=== PATIENT | male | born 1975 | race Two or more races ===

== ENCOUNTER 2021-09-27 07:24 | Outpatient (REF) | payer OTHER, SELFPAY ==
[2021-09-27 07:43] LABS: MANUAL DIFF FLAG NO
[2021-09-27 07:52] LABS: Basophils Absolute Auto 0.1 X10*3/uL (0.0-0.2); Basophils Percent Auto 1.1 % (0-2); Eosinophils Absolute Auto 0.2 X10*3/uL (0.0-0.4); Eosinophils Percent Auto 4.6 % (0-4); Hemoglobin 15.2 g/dl (14.0-18.0); Lymphocytes Absolute Auto 1.9 X10*3/uL (1.2-4.9); Lymphocytes Percent Auto 40.8 % (20-40); Mean Corpuscular Hemoglobin 29.2 pg (27.0-33.0); Mean Corpuscular Volume 88.5 fL (80.0-98.0); Mean Platelet Volume 9.3 fL (9.4-12.4); Monocytes Absolute Auto 0.4 X10*3/uL (0.1-1.2); Monocytes Percent Auto 8.8 % (2-11); Neutrophils Absolute Auto 2.1 x10*3/uL (2.0-8.3); Neutrophils Percent Auto 44.7 % (45-73); Platelet Count 316 X10*3/uL (160-400); Red Cell Distribution Width 12.9 % (11.0-16.0); White Blood Count 4.8 X10*3/uL (4.8-10.8)
[2021-09-27 08:20] LABS: Alanine Aminotransferase 24 U/L (0-40); Albumin Level 4.5 g/dL (3.5-5.0); Alkaline Phosphatase 51 U/L (39-117); Anion Gap 9 (12-20); Aspartate Amino Transferase 18 U/L (5-37); Bilirubin Total 0.4 mg/dL (0.0-1.0); Blood Urea Nitrogen 14 mg/dL (9-16); Calcium 9.7 mg/dL (8.4-10.2); Carbon Dioxide 30 mmol/L (22-29); Chloride 105 mmol/L (96-108); Cholesterol 155 mg/dL; Estimated Glomerular Filt Rate > 60; Glucose Fasting 98 mg/dL (60-99); HDL Cholesterol 46 mg/dL; LDL Cholesterol Calculated 98 mg/dl; Potassium 4.4 mmol/L (3.3-5.1); Sodium 140 mmol/L (135-145); Total Protein 7.3 g/dL (6.5-8.0); Triglycerides 56 mg/dL
[2021-09-27 08:44] LABS: Thyroid Stimulating Hormone 2.28 uIU/mL (0.32-4.0)
== END 2021-09-27 07:25 | disposition home or self-care (01) ==
LOC: HO.LAB 07:24
PROVIDERS: PCP Internal Medicine; Visit Provider Internal Medicine
DX: Z00.00 Encounter for general adult medical examination without abnormal findings (principal); Z13.0 Encounter for screening for diseases of the blood and blood-forming organs and certain disorders involving the immune mechanism; Z13.220 Encounter for screening for lipoid disorders; Z13.29 Encounter for screening for other suspected endocrine disorder
CPT/HCPCS: 36415; 80053; 80061; 84443; 85025

== ENCOUNTER 2022-01-02 07:17 | Outpatient (REF) | payer OTHER, SELFPAY ==
--- NOTE | ~2022-01-02 | XR_ITS ---
EXAMINATION: XR CHEST CLINICAL INFORMATION: Asbestos exposure COMPARISON: None TECHNIQUE: 2 views of the chest were obtained. FINDINGS: The cardiac and mediastinal contours are normal. The lungs are clear. There is no pleural effusion, pleural thickening or calcification. Bony structures are unremarkable. XR/XR chest 2V IMPRESSION: Unremarkable exam.
[2022-01-08 12:21] LABS: Testosterone, Free 86.6 pg/mL (35.0-155.0); Testosterone, Total 495 ng/dL (250-1100)
== END 2022-01-02 07:18 | disposition home or self-care (01) ==
LOC: HO.XRAY 07:17
PROVIDERS: PCP Internal Medicine; Visit Provider Internal Medicine
DX: N52.9 Male erectile dysfunction, unspecified (principal); Z77.090 Contact with and (suspected) exposure to asbestos
CPT/HCPCS: 36415; 71046; 84402; 84403

== ENCOUNTER 2022-05-23 07:56 | Outpatient (REF) | payer OTHER, SELFPAY ==
[2022-05-23 09:46] LABS: Thyroid Stimulating Hormone 3.39 uIU/mL (0.32-4.0)
== END 2022-05-23 07:57 | disposition home or self-care (01) ==
LOC: HO.LAB 07:56
PROVIDERS: PCP Internal Medicine; Visit Provider Internal Medicine
DX: E03.9 Hypothyroidism, unspecified (principal)
CPT/HCPCS: 36415; 84443

== ENCOUNTER 2022-11-21 08:00 | Outpatient (REF) | payer OTHER, SELFPAY ==
[2022-11-21 08:36] LABS: MANUAL DIFF FLAG NO
[2022-11-21 09:03] LABS: Basophils Percent Auto 0.9 % (0-2); Eosinophils Absolute Auto 0.2 X10*3/uL (0.0-0.4); Eosinophils Percent Auto 4.7 % (0-4); Hematocrit 43.7 % (42.0-52.0); Hemoglobin 14.6 g/dl (14.0-18.0); Lymphocytes Absolute Auto 2.2 X10*3/uL (1.2-4.9); Lymphocytes Percent Auto 49.4 % (20-40); Mean Corpuscular HGB Conc 33.4 g/dl (31.0-36.0); Mean Corpuscular Hemoglobin 29.3 pg (27.0-33.0); Mean Corpuscular Volume 87.8 fL (80.0-98.0); Mean Platelet Volume 9.2 fL (9.4-12.4); Monocytes Absolute Auto 0.5 X10*3/uL (0.1-1.2); Neutrophils Absolute Auto 1.6 x10*3/uL (2.0-8.3); Platelet Count 266 X10*3/uL (160-400); Red Blood Count 4.98 X10*6/uL (4.60-5.80); Red Cell Distribution Width 12.8 % (11.0-16.0); White Blood Count 4.5 X10*3/uL (4.8-10.8)
[2022-11-21 09:49] LABS: Alanine Aminotransferase 26 U/L (0-40); Albumin Level 4.3 g/dL (3.5-5.0); Alkaline Phosphatase 50 U/L (39-117); Anion Gap 11 (12-20); Aspartate Amino Transferase 18 U/L (5-37); Bilirubin Total 0.6 mg/dL (0.0-1.0); Blood Urea Nitrogen 14 mg/dL (9-16); Calcium 9.4 mg/dL (8.4-10.2); Carbon Dioxide 28 mmol/L (22-29); Chloride 107 mmol/L (96-108); Cholesterol 149 mg/dL; Estimated Glomerular Filt Rate > 60; Glucose Fasting 87 mg/dL (60-99); HDL Cholesterol 47 mg/dL; LDL Cholesterol Calculated 89 mg/dl; Potassium 4.2 mmol/L (3.3-5.1); Sodium 142 mmol/L (135-145); Triglycerides 68 mg/dL
== END 2022-11-21 08:01 | disposition home or self-care (01) ==
LOC: HO.LAB 08:00
PROVIDERS: PCP Internal Medicine; Visit Provider Internal Medicine
DX: D64.9 Anemia, unspecified (principal); E03.9 Hypothyroidism, unspecified; E78.5 Hyperlipidemia, unspecified; N28.9 Disorder of kidney and ureter, unspecified
CPT/HCPCS: 36415; 80053; 80061; 84443; 85025

== ENCOUNTER 2022-11-27 08:15 | Outpatient (AMB) | payer OTHER, SELFPAY ==
[2022-11-27 08:21] VITALS: BP 114/80; PULSE 64; O2SAT 98; BMI 26.9
--- NOTE | 2022-11-27 08:21 | MHC.PC.OV ---
Vital Signs 11/27/22 08:21 Height 6 ft 2 in Weight 209 lb 6 oz BMI 26.9 BP 114/80 Blood Pressure Location Lt brachial Position Sitting Pulse 64 Pulse Source Pulse Oximeter Pulse Oximetry (%) 98 Oxygen Delivery Method Room Air Intake Visit Reasons: 3mth f/u Allergies No Known Allergies Allergy (Verified 11/27/22 08:26) Medication List - Last Reconciled 11/27/22 by Raymond Jim MD blood pressure monitor (Blood Pressure Kit) As directed levothyroxine (Euthyrox) 50 mcg PO DAILY lisinopril 10 mg PO DAILY sildenafil (Viagra) 50 mg PO DAILY PRN Tobacco use date assessed: 10/18/22 Dental Screening Dental Screen Date: 11/27/22 Did you have a dental visit in the last 12 months?: No Did you have a dental problem in the last 6 months where you did not have access to dental care?: No Was dental information given to patient?: Patient declined HPI 3mth f/u HPI Details HTN and hypothyroidism; stable on rx PFSH Surgical History No pertinent past surgical history Family History Other Mental health disorder Substance use disorder Social History Housing: Apartment Alcohol intake: current Alcohol intake frequency: a few times a week Patient Tobacco Use Status: Never used Tobacco e-Cigarette/Vaping Use: Never Used Second Hand Smoke Exposure: No service: No Current occupational status: employed Cognitive needs: No Hearing needs: No Vision needs: No Questionnaire PHQ-9 Over the last 2 weeks, how often have you been bothered by any of the following problems? 1. Little interest or pleasure in doing things: not at all 2. Feeling down, depressed, or hopeless: not at all 3. Trouble falling or staying asleep, or sleeping too much: not at all 4. Feeling tired or having little energy: not at all 5. Poor appetite or overeating: not at all 6. Feeling bad about yourself - or that you are a failure or have let yourself or your family down: not at all 7. Trouble concentrating on things, such as reading the newspaper or watching television: not at all 8. Moving or speaking so slowly that other people could have noticed. Or the opposite - being so fidgety or restless that you have been moving around a lot more than usual: not at all 9. Thoughts that you would be better off or of hurting yourself in some way: not at all Total score: 0 Depression Screening Interpretation: Negative Source: Developed by Drs. Tucker Dos Santos, Betty Hill, Zbigniew Barreto and colleagues, with an educational kimberly from [employer]. Thrive Questionnaire Date Thrive assessed: 05/24/22 I am a: Patient What is your living situation today?: I have a steady place to live Within the past 12 months, did the food you bought not last and you didn't have the money to get more?: Never true Within the past 12 months, did you worry whether your food would run out before you got money to buy more?: Never true Do you have trouble paying for medicines?: No Do you have trouble getting transportation to medical appointments?: No Do you have trouble paying your heating and electricity bill?: No Do you have trouble taking care of your child, family member or friend?: No Do you have trouble with day-to-day activities such as bathing, preparing meals, shopping, managing finances, etc.?: No Are you currently unemployed and looking for a job?: No Are you interested in more education?: No Currently or been in a relationship where the following occur: no concerns reported AUDIT C Alcohol Use Questionnaire (AUDIT-C) 1. How often do you have a drink containing alcohol?: 2-3 times a week 2. How many drinks containing alcohol do you have on a typical day when you are drinking?: 5 or 6 3. How often do you have six or more drinks on one occasion?: Less than monthly Total Score: 6 Score Reviewed/Action Taken: Yes TAWANDA-7 AMB Questionnaire TAWANDA-7 Date TAWANDA - 7 assessed: 05/24/22 Feeling nervous, anxious, or on edge: 0 = Not at all Not being able to stop or control worryin = Not at all Worrying too much about different things: 0 = Not at all Trouble relaxin = Not at all Being so restless that it is hard to sit still: 0 = Not at all Becoming easily annoyed or irritable: 0 = Not at all Feeling afraid as if something awful might happen: 0 = Not at all Total TAWANDA-7 score (0-4 normal; 5-9 mild; 10-14 moderate; 15-21 severe): 0 Source: Developed by Drs. Tucker Dos Santos, Betty Hill, Zbigniew Barreto and colleagues, with an educational kimberly from [employer]. TAWANDA-7 Assessment Billing TAWANDA-7 Assessment Tool: TAWANDA-7 Assessment 08886 Review of Systems Const Denies chills, Denies headache(s) and Denies weight loss ENT Denies headache(s) Card Denies chest pain, Denies syncope, Denies irregular heart rhythm and Denies dyspnea Resp Denies chest congestion, Denies cough and Denies dyspnea GI Denies abdominal pain, Denies change in stool character, Denies nausea and Denies vomiting Musc Denies deformity and Denies joint swelling Neuro Denies syncope and Denies headache(s) Physical exam (Primary Care) Vital Signs: Last Vital Signs Pulse 64 11/27/22 08:21 BP 114/80 11/27/22 08:21 Pulse Ox 98 11/27/22 08:21 Oxygen Delivery Method Room Air 11/27/22 08:21 BMI result Body Mass Index 26.9 Tobacco/Smoking Status: Tobacco use Status Tobacco use date assessed 10/18/22 11/27/22 08:28 Patient Tobacco Use Status Never used Tobacco 11/27/22 08:28 e-Cigarette/Vaping Use Never Used 11/27/22 08:28 PHQ-9: PHQ-9 Score PHQ-9: Total score 0 11/27/22 08:28 Depression Screening Interpretation: Negative Thrive Assessment: Date of Thrive Assessment Date Thrive assessed 05/24/22 11/27/22 08:28 Currently or been in a relationship where the following occur: no concerns reported Const General: cooperative, comfortable and no acute distress Neck Thyroid: Thyroid normal Carotids: normal carotid upstroke Resp Effort & Inspection: normal respiratory effort Cardio Jugular venous distension: no JVD Rate: regular rate Rhythm: regular rhythm GI Inspection: Yes normal to inspection Assessment and Plan Assessment & Plan (1) Hypothyroidism: Code(s): E03.9 - Hypothyroidism, unspecified Plan: stable; same rx (2) Hypertension: Code(s): I10 - Essential (primary) hypertension Plan: stable; same rx Orders: Orders Thyroid Stimulating Hormone Today E03.9 - Hypothyroidism, unspecified Coding Level of Care Code Est Pt Level 3 (30182) Diagnoses Hypothyroidism E03.9 Hypertension I10 Additional Codes TAWANDA-7 Assessment Billing - TAWANDA-7 Assessment Tool: TAWANDA-7 Assessment [id number] ([id number])
== END 2022-11-27 08:52 | disposition home or self-care (01) ==
PROVIDERS: PCP Internal Medicine; Visit Provider Internal Medicine
DX: E03.9 Hypothyroidism, unspecified (principal); I10 Essential (primary) hypertension
CPT/HCPCS: 99213

== ENCOUNTER 2023-03-10 08:34 | Outpatient (AMB) | payer OTHER, SELFPAY ==
[2023-03-10 08:38] VITALS: BP 132/88; PULSE 75; O2SAT 99; BMI 27.2
--- NOTE | 2023-03-10 08:38 | A.OFFPC_ITS ---
Vital Signs 03/10/23 08:38 Height 6 ft 2 in Weight 212 lb BMI 27.2 BP 132/88 Blood Pressure Location Lt brachial Position Sitting Pulse 75 Pulse Source Pulse Oximeter Pulse Oximetry (%) 99 Oxygen Delivery Method Room Air Intake Visit Reasons: 3 month f/u Reject Opener And Filler: Not Required per policy Accompanied by: Self / Same As Patient Allergies No Known Allergies Allergy (Verified 03/10/23 08:39) Medication List - Last Reconciled 03/10/23 by Raymond Jim MD blood pressure monitor (Blood Pressure Kit) As directed levothyroxine (Euthyrox) 50 mcg PO DAILY lisinopril 10 mg PO DAILY sildenafil (Viagra) 50 mg PO DAILY PRN Tobacco use date assessed: 10/18/22 Dental Screening Dental Screen Date: 03/10/23 Did you have a dental visit in the last 12 months?: No Did you have a dental problem in the last 6 months where you did not have access to dental care?: No Was dental information given to patient?: Patient has dentist HPI 3 month f/u HPI Details hypothyroidism on rx; doing well PFSH Surgical History No pertinent past surgical history Family History Other Mental health disorder Substance use disorder Housing: Apartment Alcohol intake: current Alcohol intake frequency: a few times a week Patient Tobacco Use Status: Never used Tobacco e-Cigarette/Vaping Use: Never Used Second Hand Smoke Exposure: No service: No Current occupational status: employed Cognitive needs: No Hearing needs: No Vision needs: No Questionnaire Thrive Questionnaire Date Thrive assessed: 05/24/22 TAWANDA-7 AMB Questionnaire TAWANDA-7 Date TAWANDA - 7 assessed: 05/24/22 Source: Developed by Drs. Tucker Dos Santos, Betty Hill, Zbigniew Barreto and colleagues, with an educational kimberly from [employer]. Review of Systems Const Denies chills, Denies headache(s) and Denies weight loss ENT Denies headache(s) Card Denies chest pain, Denies syncope, Denies irregular heart rhythm and Denies dyspnea Resp Denies chest congestion, Denies cough and Denies dyspnea GI Denies abdominal pain, Denies change in stool character, Denies nausea and Denies vomiting Musc Denies deformity and Denies joint swelling Neuro Denies syncope and Denies headache(s) Physical exam (Primary Care) Vital Signs: Last Vital Signs Pulse 75 03/10/23 08:38 BP 132/88 03/10/23 08:38 Pulse Ox 99 03/10/23 08:38 Oxygen Delivery Method Room Air 03/10/23 08:38 BMI result Body Mass Index 27.2 Tobacco/Smoking Status: Tobacco use Status Tobacco use date assessed 10/18/22 03/10/23 08:40 Patient Tobacco Use Status Never used Tobacco 03/10/23 08:40 e-Cigarette/Vaping Use Never Used 03/10/23 08:40 Thrive Assessment: Date of Thrive Assessment Date Thrive assessed 05/24/22 03/10/23 08:40 Const General: cooperative, comfortable, no acute distress and alert Neck Neck: Yes no lymphadenopathy Thyroid: Thyroid normal Resp Effort & Inspection: normal respiratory effort Auscultation: clear to auscultation bilaterally Percussion: percussion normal Cardio Jugular venous distension: no JVD Palpation: normal PMI Rate: regular rate Rhythm: regular rhythm Heart sounds: S1 normal heart sound present and S2 normal heart sound present GI Inspection: Yes normal to inspection Palpation (GI): No hepatosplenomegaly present Skin General skin exam: no rashes or lesions noted Extrem General: Yes no clubbing, cyanosis or edema Assessment and Plan Assessment & Plan (1) Hypothyroidism: Code(s): E03.9 - Hypothyroidism, unspecified Plan: stable; same rx Orders: Orders Thyroid Stimulating Hormone Today E03.9 - Hypothyroidism, unspecified ECG 12 lead EKG Today R06.00 - Dyspnea, unspecified Medications: New tadalafil (Cialis) administer approximately 30min before sexual activity; do not use more than 1 dose per 24hrs 20 mg PO DAILY PRN 30 tabs 3RF sexual activity Discontinued sildenafil (Viagra) administer 30 minutes to 4 hours before activity Discontinued Reason: None 50 mg PO DAILY PRN 20 tabs 2RF sexual activity Coding Level of Care Code Est Pt Level 3 (59638) Diagnoses Hypothyroidism E03.9
== END 2023-03-10 09:22 | disposition home or self-care (01) ==
PROVIDERS: PCP Internal Medicine; Visit Provider Internal Medicine
DX: E03.9 Hypothyroidism, unspecified (principal)
CPT/HCPCS: 99213

== ENCOUNTER 2023-03-10 09:26 | Outpatient (REF) | payer OTHER, SELFPAY ==
--- NOTE | 2023-03-10 09:34 | ECG_ITS ---
Test Reason : r06.00 Blood Pressure : / mmHG Vent. Rate : 071 BPM Atrial Rate : 071 BPM P-R Int : 168 ms QRS Dur : 076 ms QT Int : 374 ms P-R-T Axes : 056 086 043 degrees QTc Int : 406 ms Normal sinus rhythm Normal ECG No previous ECGs available Referred By: Raymond Jim Electronically Signed By:CANDACE PEÑA MD
[2023-03-10 09:39] LABS: MANUAL DIFF FLAG NO
[2023-03-10 10:29] LABS: Eosinophils Absolute Auto 0.2 X10*3/uL (0.0-0.4); Hematocrit 46.5 % (42.0-52.0); Hemoglobin 15.2 g/dl (14.0-18.0); Imm Gran Abs Auto 0.01 X10*3/uL (0.00-0.03); Imm Gran Pct Auto 0.2 % (0.0-0.4); Lymphocytes Absolute Auto 1.6 X10*3/uL (1.2-4.9); Lymphocytes Percent Auto 39.1 % (20-40); Mean Corpuscular HGB Conc 32.7 g/dl (31.0-36.0); Mean Corpuscular Hemoglobin 29.7 pg (27.0-33.0); Mean Corpuscular Volume 90.8 fL (80.0-98.0); Mean Platelet Volume 9.5 fL (9.4-12.4); Monocytes Absolute Auto 0.4 X10*3/uL (0.1-1.2); Monocytes Percent Auto 9.6 % (2-11); Neutrophils Absolute Auto 1.9 x10*3/uL (2.0-8.3); Neutrophils Percent Auto 45.1 % (45-73); Platelet Count 313 X10*3/uL (160-400); Red Blood Count 5.12 X10*6/uL (4.60-5.80); White Blood Count 4.2 X10*3/uL (4.8-10.8)
[2023-03-10 11:15] LABS: Alanine Aminotransferase 49 U/L (0-40); Albumin Level 4.6 g/dL (3.5-5.0); Alkaline Phosphatase 46 U/L (39-117); Anion Gap 10 (12-20); Aspartate Amino Transferase 29 U/L (5-37); Bilirubin Total 0.4 mg/dL (0.0-1.0); Blood Urea Nitrogen 12 mg/dL (9-16); Calcium 9.7 mg/dL (8.4-10.2); Carbon Dioxide 29 mmol/L (22-29); Chloride 106 mmol/L (96-108); Cholesterol 179 mg/dL (<200); Estimated Glomerular Filt Rate > 60; Glucose Fasting 88 mg/dL (60-99); HDL Cholesterol 55 mg/dL (>40); LDL Cholesterol Calculated 108 mg/dL (<100); Potassium 4.2 mmol/L (3.3-5.1); Sodium 141 mmol/L (135-145); Total Protein 7.7 g/dL (6.5-8.0); Triglycerides 83 mg/dL (<150)
[2023-03-10 11:36] LABS: Thyroid Stimulating Hormone 1.54 uIU/mL (0.32-4.0)
== END 2023-03-10 09:27 | disposition home or self-care (01) ==
LOC: HO.LAB 09:26
PROVIDERS: PCP Internal Medicine; Visit Provider Internal Medicine
DX: N28.9 Disorder of kidney and ureter, unspecified (principal); D64.9 Anemia, unspecified; E78.5 Hyperlipidemia, unspecified; E03.9 Hypothyroidism, unspecified; R06.00 Dyspnea, unspecified
CPT/HCPCS: 36415; 80053; 80061; 84443; 85025; 93005

== ENCOUNTER 2023-06-09 08:51 | Outpatient (AMB) | payer OTHER, SELFPAY ==
[2023-06-09 08:52] VITALS: BP 146/80; PULSE 95; O2SAT 99; BMI 27.3
--- NOTE | 2023-06-09 08:52 | A.OFFPC_ITS ---
Vital Signs 06/09/23 08:52 Height 6 ft 2 in Weight 213 lb BMI 27.3 BP 146/80 H Blood Pressure Location Lt brachial Position Sitting Pulse 95 Pulse Source Pulse Oximeter Pulse Oximetry (%) 99 Oxygen Delivery Method Room Air Intake Visit Reasons: follow up Severity Of Illness Coordinator: Present Allergies No Known Allergies Allergy (Verified 06/09/23 08:52) Medication List - Last Reconciled 06/09/23 by Raymond Jim MD blood pressure monitor (Blood Pressure Kit) As directed levothyroxine (Euthyrox) 50 mcg PO DAILY lisinopril 10 mg PO DAILY tadalafil (Cialis) 20 mg PO DAILY PRN Tobacco use date assessed: 06/09/23 Dental Screening Dental Screen Date: 06/09/23 Did you have a dental visit in the last 12 months?: Yes Did you have a dental problem in the last 6 months where you did not have access to dental care?: No Was dental information given to patient?: Patient has dentist HPI follow up HPI Details HTN hypothyroidism and ED on rx; compliant and doing well [facility] Surgical History No pertinent past surgical history Family History Other Mental health disorder Substance use disorder Social History Housing: Apartment Alcohol intake: current Alcohol intake frequency: a few times a week Patient Tobacco Use Status: Never used Tobacco e-Cigarette/Vaping Use: Never Used Second Hand Smoke Exposure: No service: No Current occupational status: employed Cognitive needs: No Hearing needs: No Vision needs: No Questionnaire PHQ-9 Over the last 2 weeks, how often have you been bothered by any of the following problems? 1. Little interest or pleasure in doing things: not at all 2. Feeling down, depressed, or hopeless: not at all 3. Trouble falling or staying asleep, or sleeping too much: not at all 4. Feeling tired or having little energy: not at all 5. Poor appetite or overeating: not at all 6. Feeling bad about yourself - or that you are a failure or have let yourself or your family down: not at all 7. Trouble concentrating on things, such as reading the newspaper or watching television: not at all 8. Moving or speaking so slowly that other people could have noticed. Or the opposite - being so fidgety or restless that you have been moving around a lot more than usual: not at all 9. Thoughts that you would be better off or of hurting yourself in some way: not at all Total score: 0 Depression Screening Interpretation: Negative Depression Screening Done: Yes 93710 - PHQ-9 Billing: Yes Source: Developed by Drs. Tucker Dos Santos, Betty Hill, Zbigniew Barreto and colleagues, with an educational kimberly from [employer]. Thrive Questionnaire Date Thrive assessed: 06/09/23 I am a: Patient What is your living situation today?: I have a steady place to live Within the past 12 months, did the food you bought not last and you didn't have the money to get more?: Never true Within the past 12 months, did you worry whether your food would run out before you got money to buy more?: Never true Do you have trouble paying for medicines?: No Do you have trouble getting transportation to medical appointments?: No Do you have trouble paying your heating and electricity bill?: No Do you have trouble taking care of your child, family member or friend?: No Do you have trouble with day-to-day activities such as bathing, preparing meals, shopping, managing finances, etc.?: No Are you currently unemployed and looking for a job?: No Are you interested in more education?: No Please select the resources that you would like help with: None THRIVE Score: 0 AUDIT C Alcohol Use Questionnaire (AUDIT-C) 1. How often do you have a drink containing alcohol?: 2-3 times a week 2. How many drinks containing alcohol do you have on a typical day when you are drinking?: 5 or 6 3. How often do you have six or more drinks on one occasion?: Less than monthly Total Score: 6 Score Reviewed/Action Taken: Yes TAWANDA-7 AMB Questionnaire TAWANDA-7 Date TAWANDA - 7 assessed: 06/09/23 Feeling nervous, anxious, or on edge: 0 = Not at all Not being able to stop or control worryin = Not at all Worrying too much about different things: 0 = Not at all Trouble relaxin = Not at all Being so restless that it is hard to sit still: 0 = Not at all Becoming easily annoyed or irritable: 0 = Not at all Feeling afraid as if something awful might happen: 0 = Not at all Total TAWANDA-7 score (0-4 normal; 5-9 mild; 10-14 moderate; 15-21 severe): 0 Source: Developed by Drs. Tucker Dos Santos, Betty Hill, Zbigniew Barreto and colleagues, with an educational kimberly from [employer]. TAWANDA-7 Assessment Billing TAWANDA-7 Assessment Tool: TAWANDA-7 Assessment 17920 Review of Systems Const Denies chills, Denies headache(s) and Denies weight loss ENT Denies headache(s) Card Denies chest pain, Denies syncope, Denies irregular heart rhythm and Denies dyspnea Resp Denies chest congestion, Denies cough and Denies dyspnea GI Denies abdominal pain, Denies change in stool character, Denies nausea and Denies vomiting Musc Denies deformity and Denies joint swelling Neuro Denies syncope and Denies headache(s) Physical exam (Primary Care) Vital Signs: Last Vital Signs Pulse 95 06/09/23 08:52 BP 146/80 H 06/09/23 08:52 Pulse Ox 99 06/09/23 08:52 Oxygen Delivery Method Room Air 06/09/23 08:52 BMI result Body Mass Index 27.3 Tobacco/Smoking Status: Tobacco use Status Tobacco use date assessed 06/09/23 06/09/23 08:57 Patient Tobacco Use Status Never used Tobacco 06/09/23 08:57 e-Cigarette/Vaping Use Never Used 06/09/23 08:57 PHQ-9: PHQ-9 Score PHQ-9: Total score 0 06/09/23 09:06 Depression Screening Interpretation: Negative Thrive Assessment: Date of Thrive Assessment Date Thrive assessed 06/09/23 06/09/23 08:57 Const General: cooperative, comfortable, no acute distress and alert Neck Neck: Yes no lymphadenopathy Thyroid: Thyroid normal Resp Effort & Inspection: normal respiratory effort Auscultation: clear to auscultation bilaterally Percussion: percussion normal Cardio Jugular venous distension: no JVD Palpation: normal PMI Rate: regular rate Rhythm: regular rhythm Heart sounds: S1 normal heart sound present and S2 normal heart sound present GI Inspection: Yes normal to inspection Palpation (GI): No hepatosplenomegaly present Skin General skin exam: no rashes or lesions noted Extrem General: Yes no clubbing, cyanosis or edema Assessment and Plan Assessment & Plan (1) Hypothyroidism: Code(s): E03.9 - Hypothyroidism, unspecified Plan: stable; same rx (2) Hypertension: Code(s): I10 - Essential (primary) hypertension Plan: stable; same rx (3) Varicose veins of bilateral lower extremities with pain: Code(s): I83.813 - Varicose veins of bilateral lower extremities with pain Plan: requests referral to the vein center Orders: Orders PFT pulmonary function test Today Lipid Panel Today E78.5 - Hyperlipidemia, unspecified Complete Blood Count Auto Diff Today D64.9 - Anemia, unspecified Comprehensive [place]. Panel Fast Today N28.9 - Disorder of kidney and ureter, unspecified Thyroid Stimulating Hormone Today E03.9 - Hypothyroidism, unspecified Vitamin D 25-OH Total Today Z13.9 - Encounter for screening, unspecified Referrals Vascular Surgery Referral I83.813 - Varicose veins of bilateral lower extremities with pain Coding Level of Care Code Est Pt Level 4 (17006) Diagnoses Hypothyroidism E03.9 Hypertension I10 Varicose veins of bilateral lower extremities with pain I83.813 Additional Codes TAWANDA-7 Assessment Billing - TAWANDA-7 Assessment Tool: TAWANDA-7 Assessment [id number] ([id number])
== END 2023-06-09 09:08 | disposition home or self-care (01) ==
PROVIDERS: PCP Internal Medicine; Visit Provider Internal Medicine
DX: E03.9 Hypothyroidism, unspecified (principal); I10 Essential (primary) hypertension; I83.813 Varicose veins of bilateral lower extremities with pain
CPT/HCPCS: 99214

== ENCOUNTER 2023-10-07 07:32 | Outpatient (REF) | payer OTHER, SELFPAY ==
[2023-10-07 07:49] LABS: MANUAL DIFF FLAG NO
[2023-10-07 08:06] LABS: Basophils Percent Auto 0.8 % (0-2); Eosinophils Absolute Auto 0.3 X10*3/uL (0.0-0.4); Eosinophils Percent Auto 6.8 % (0-4); Hematocrit 42.9 % (42.0-52.0); Hemoglobin 14.8 g/dl (14.0-18.0); Imm Gran Abs Auto 0.01 X10*3/uL (0.00-0.03); Imm Gran Pct Auto 0.2 % (0.0-0.4); Lymphocytes Absolute Auto 2.2 X10*3/uL (1.2-4.9); Lymphocytes Percent Auto 44.3 % (20-40); Mean Corpuscular HGB Conc 34.5 g/dl (31.0-36.0); Mean Corpuscular Hemoglobin 30.3 pg (27.0-33.0); Mean Corpuscular Volume 87.7 fL (80.0-98.0); Mean Platelet Volume 9.5 fL (9.4-12.4); Monocytes Absolute Auto 0.5 X10*3/uL (0.1-1.2); Neutrophils Absolute Auto 1.9 x10*3/uL (2.0-8.3); Neutrophils Percent Auto 37.9 % (45-73); Platelet Count 284 X10*3/uL (160-400); Red Blood Count 4.89 X10*6/uL (4.60-5.80)
[2023-10-07 08:41] LABS: Alanine Aminotransferase 27 U/L (0-40); Alkaline Phosphatase 50 U/L (39-117); Anion Gap 12 (12-20); Aspartate Amino Transferase 20 U/L (5-37); Bilirubin Total 0.5 mg/dL (0.0-1.0); Blood Urea Nitrogen 12 mg/dL (9-16); Calcium 9.1 mg/dL (8.4-10.2); Carbon Dioxide 25 mmol/L (22-29); Chloride 107 mmol/L (96-108); Cholesterol 155 mg/dL (<200); Estimated Glomerular Filt Rate > 60; Glucose Fasting 89 mg/dL (60-99); HDL Cholesterol 51 mg/dL (>40); LDL Cholesterol Calculated 85 mg/dL (<100); Potassium 4.1 mmol/L (3.3-5.1); Sodium 140 mmol/L (135-145); Total Protein 6.8 g/dL (6.5-8.0); Triglycerides 96 mg/dL (<150)
[2023-10-07 08:58] LABS: Thyroid Stimulating Hormone 2.33 uIU/mL (0.32-4.0); Vitamin D 25-OH Total 28.4 ng/mL (>30)
== END 2023-10-07 07:33 | disposition home or self-care (01) ==
LOC: HO.LAB 07:32
PROVIDERS: PCP Internal Medicine; Visit Provider Internal Medicine
DX: D64.9 Anemia, unspecified (principal); N28.9 Disorder of kidney and ureter, unspecified; Z13.9 Encounter for screening, unspecified; E03.9 Hypothyroidism, unspecified; E78.5 Hyperlipidemia, unspecified
CPT/HCPCS: 36415; 80053; 80061; 82306; 84443; 85025

== ENCOUNTER 2023-10-08 08:31 | Outpatient (AMB) | payer OTHER, SELFPAY ==
--- NOTE | 2023-10-08 08:35 | MHC.PC.OV ---
Vital Signs 10/08/23 08:42 Height 6 ft 2 in Weight 213 lb 0.6 oz BMI 27.3 BP 136/74 Blood Pressure Location Lt brachial Position Sitting Pulse 75 Pulse Source Pulse Oximeter Pulse Oximetry (%) 100 Oxygen Delivery Method Room Air Intake Visit Reasons: 4mth f/u Intake Note: Patient is here to follow up on HTN. Consumer Loan Specialist Required: No Allergies No Known Allergies Allergy (Verified 10/08/23 08:42) Tobacco use date assessed: 06/09/23 Dental Screening Dental Screen Date: 06/09/23 HPI 4mth f/u HPI Details HTN and hypothyr on rx; doing well; labs fine PFSH Surgical History No pertinent past surgical history Family History Other Mental health disorder Substance use disorder Social History Housing: Apartment Alcohol intake: current Alcohol intake frequency: a few times a week Patient Tobacco Use Status: Never used Tobacco e-Cigarette/Vaping Use: Never Used Second Hand Smoke Exposure: No service: No Current occupational status: employed Cognitive needs: No Hearing needs: No Vision needs: No Questionnaire Thrive Questionnaire Date Thrive assessed: 06/09/23 AUDIT C Alcohol Use Questionnaire (AUDIT-C) 1. How often do you have a drink containing alcohol?: 2-3 times a week 2. How many drinks containing alcohol do you have on a typical day when you are drinking?: 5 or 6 3. How often do you have six or more drinks on one occasion?: Less than monthly Total Score: 6 Score Reviewed/Action Taken: Yes TAWANDA-7 AMB Questionnaire TAWANDA-7 Date TAWANDA - 7 assessed: 06/09/23 Source: Developed by Drs. Tucker Dos Santos, Betty Hill, Zbigniew Barreto and colleagues, with an educational kimberly from [employer]. Review of Systems Const Denies chills, Denies headache(s) and Denies weight loss ENT Denies headache(s) Card Denies chest pain, Denies syncope, Denies irregular heart rhythm and Denies dyspnea Resp Denies chest congestion, Denies cough and Denies dyspnea GI Denies abdominal pain, Denies change in stool character, Denies nausea and Denies vomiting Musc Denies deformity and Denies joint swelling Neuro Denies syncope and Denies headache(s) Physical exam (Primary Care) Vital Signs: Last Vital Signs Pulse 75 10/08/23 08:42 BP 136/74 10/08/23 08:42 Pulse Ox 100 10/08/23 08:42 Oxygen Delivery Method Room Air 10/08/23 08:42 BMI result Body Mass Index 27.3 Tobacco/Smoking Status: Tobacco use Status Tobacco use date assessed 06/09/23 10/08/23 08:44 Patient Tobacco Use Status Never used Tobacco 10/08/23 08:44 e-Cigarette/Vaping Use Never Used 10/08/23 08:44 Thrive Assessment: Date of Thrive Assessment Date Thrive assessed 06/09/23 10/08/23 08:44 Const General: cooperative, comfortable, no acute distress and alert Neck Neck: Yes no lymphadenopathy Thyroid: Thyroid normal Resp Effort & Inspection: normal respiratory effort Auscultation: clear to auscultation bilaterally Percussion: percussion normal Cardio Jugular venous distension: no JVD Palpation: normal PMI Rate: regular rate Rhythm: regular rhythm Heart sounds: S1 normal heart sound present and S2 normal heart sound present GI Inspection: Yes normal to inspection Palpation (GI): No hepatosplenomegaly present Skin General skin exam: no rashes or lesions noted Extrem General: Yes no clubbing, cyanosis or edema Assessment and Plan Assessment & Plan (1) Hypothyroidism: Code(s): E03.9 - Hypothyroidism, unspecified Plan: stable; same rx (2) Hypertension: Code(s): I10 - Essential (primary) hypertension Plan: stable; same rx Medications: Refilled tadalafil (Cialis) administer approximately 30min before sexual activity; do not use more than 1 dose per 24hrs 20 mg PO DAILY PRN 30 tabs 3RF sexual activity Coding Level of Care Code Est Pt Level 3 (48015) Diagnoses Hypothyroidism E03.9 Hypertension I10
[2023-10-08 08:42] VITALS: BP 136/74; PULSE 75; O2SAT 100; BMI 27.3
== END 2023-10-08 08:52 | disposition home or self-care (01) ==
PROVIDERS: PCP Internal Medicine; Visit Provider Internal Medicine
DX: E03.9 Hypothyroidism, unspecified (principal); I10 Essential (primary) hypertension
CPT/HCPCS: 99213

== ENCOUNTER 2024-01-06 08:04 | Outpatient (REF) | payer OTHER, SELFPAY ==
[2024-01-06 10:12] LABS: Thyroid Stimulating Hormone 2.85 uIU/mL (0.32-4.0)
== END 2024-01-06 08:05 | disposition home or self-care (01) ==
LOC: HO.LAB 08:04
PROVIDERS: PCP Internal Medicine; Visit Provider Internal Medicine
DX: E03.9 Hypothyroidism, unspecified (principal)
CPT/HCPCS: 36415; 84443

== ENCOUNTER 2024-01-08 09:47 | Outpatient (AMB) | payer OTHER, SELFPAY ==
[2024-01-08 09:48] VITALS: BP 132/78; PULSE 74; O2SAT 96; BMI 27.6
--- NOTE | 2024-01-08 09:48 | A.OFFPC_ITS ---
Vital Signs 01/08/24 09:48 Height 6 ft 2 in Weight 215 lb BMI 27.6 BP 132/78 Blood Pressure Location Lt brachial Position Sitting Pulse 74 Pulse Source Pulse Oximeter Pulse Oximetry (%) 96 Oxygen Delivery Method Room Air Intake Visit Reasons: 3 Month F/U Allergies No Known Allergies Allergy (Verified 10/08/23 08:42) Medication List - Last Reconciled 01/08/24 by Raymond Jim MD blood pressure monitor (Blood Pressure Kit) As directed levothyroxine (Euthyrox) 50 mcg PO DAILY lisinopril 10 mg PO DAILY tadalafil (Cialis) 20 mg PO DAILY PRN Tobacco use date assessed: 06/09/23 Dental Screening Dental Screen Date: 06/09/23 HPI 3 Month F/U HPI Details hypertension on rx; doing well; compliant [facility] Surgical History No pertinent past surgical history Family History Other Mental health disorder Substance use disorder Social History Housing: Apartment Alcohol intake: current Alcohol intake frequency: a few times a week Patient Tobacco Use Status: Never used Tobacco Tobacco use type: Cigarette e-Cigarette/Vaping Use: Never Used Second Hand Smoke Exposure: No service: No Current occupational status: employed Cognitive needs: No Hearing needs: No Vision needs: No Questionnaire PHQ-9 Over the last 2 weeks, how often have you been bothered by any of the following problems? 1. Little interest or pleasure in doing things: not at all 2. Feeling down, depressed, or hopeless: not at all 3. Trouble falling or staying asleep, or sleeping too much: not at all 4. Feeling tired or having little energy: not at all 5. Poor appetite or overeating: not at all 6. Feeling bad about yourself - or that you are a failure or have let yourself or your family down: not at all 7. Trouble concentrating on things, such as reading the newspaper or watching television: not at all 8. Moving or speaking so slowly that other people could have noticed. Or the opposite - being so fidgety or restless that you have been moving around a lot more than usual: not at all 9. Thoughts that you would be better off or of hurting yourself in some way: not at all Total score: 0 Depression Screening Interpretation: Negative Depression Screening Done: Yes 69181 - PHQ-9 Billing: Yes Source: Developed by Drs. Tucker Dos Santos, Betty Hill, bZigniew Barreto and colleagues, with an educational kimberly from [employer]. Thrive Questionnaire Date Thrive assessed: 06/09/23 Are you currently unemployed and looking for a job?: No AUDIT C Alcohol Use Questionnaire (AUDIT-C) 1. How often do you have a drink containing alcohol?: 2-3 times a week 2. How many drinks containing alcohol do you have on a typical day when you are drinking?: 5 or 6 3. How often do you have six or more drinks on one occasion?: Less than monthly Total Score: 6 Score Reviewed/Action Taken: Yes TAWANDA-7 AMB Questionnaire TAWANDA-7 Date TAWANDA - 7 assessed: 06/09/23 Source: Developed by Drs. Tucker Dos Santos, Betty Hill, Zbigniew Barreto and colleagues, with an educational kimberly from [employer]. Review of Systems Const Denies chills, Denies headache(s) and Denies weight loss ENT Denies headache(s) Card Denies chest pain, Denies syncope, Denies irregular heart rhythm and Denies dyspnea Resp Denies chest congestion, Denies cough and Denies dyspnea GI Denies abdominal pain, Denies change in stool character, Denies nausea and Denies vomiting Musc Denies deformity and Denies joint swelling Neuro Denies syncope and Denies headache(s) Physical exam (Primary Care) Vital Signs: Last Vital Signs Pulse 74 01/08/24 09:48 BP 132/78 01/08/24 09:48 Pulse Ox 96 01/08/24 09:48 Oxygen Delivery Method Room Air 01/08/24 09:48 BMI result Body Mass Index 27.6 Tobacco/Smoking Status: Tobacco use Status Tobacco use date assessed 06/09/23 01/08/24 09:52 Patient Tobacco Use Status Never used Tobacco 01/08/24 09:52 Tobacco use type Cigarette 01/08/24 09:52 e-Cigarette/Vaping Use Never Used 01/08/24 09:52 PHQ-9: PHQ-9 Score PHQ-9: Total score 0 01/08/24 09:53 Depression Screening Interpretation: Negative Thrive Assessment: Date of Thrive Assessment Date Thrive assessed 06/09/23 01/08/24 09:52 Const General: cooperative, comfortable, no acute distress and alert Neck Neck: Yes no lymphadenopathy Thyroid: Thyroid normal Resp Effort & Inspection: normal respiratory effort Auscultation: clear to auscultation bilaterally Percussion: percussion normal Cardio Jugular venous distension: no JVD Palpation: normal PMI Rate: regular rate Rhythm: regular rhythm Heart sounds: S1 normal heart sound present and S2 normal heart sound present GI Inspection: Yes normal to inspection Palpation (GI): No hepatosplenomegaly present Skin General skin exam: no rashes or lesions noted Extrem General: Yes no clubbing, cyanosis or edema Assessment and Plan Assessment & Plan (1) Hypertension: Code(s): I10 - Essential (primary) hypertension Plan: stable; same rx Orders: Orders Thyroid Stimulating Hormone Today Z13.29 - Encounter for screening for other suspected endocrine disorder Coding Level of Care Code Est Pt Level 3 (96457) Diagnoses Hypertension I10
== END 2024-01-08 10:04 | disposition home or self-care (01) ==
PROVIDERS: PCP Internal Medicine; Visit Provider Internal Medicine
DX: I10 Essential (primary) hypertension (principal)

== ENCOUNTER → 2024-01-08 09:47 | Outpatient (BNVA) | payer OTHER, SELFPAY | PROVIDERS: PCP Internal Medicine; Visit Provider Internal Medicine | DX: I10 Essential (primary) hypertension (principal) | CPT/HCPCS: 96127 ==

== ENCOUNTER 2024-02-27 08:47 | Outpatient (REF) | payer OTHER, SELFPAY ==
--- NOTE | 2024-02-27 08:56 | PFT_ITS ---
Flows: FEV1: 67 % of predicted at 3.04 L FVC: 76 % of predicted at 4.40 L FEV1/FVC: 69 % Bronchodilator response: Absent Volumes: Patient was not able to perform lung volumes maneuvers. Diffusion capacity: Normal Impression: Moderate obstructive ventilatory defect. Suggestion of restrictive ventilatory defect. No bronchodilator response. Patient was not able to perform lung volumes maneuvers. MTDD
[2024-02-27 14:20] VITALS: PULSE 72; O2SAT 98
== END 2024-02-27 08:48 | disposition home or self-care (01) ==
LOC: HO.RESP 08:47
PROVIDERS: PCP Internal Medicine; Visit Provider Internal Medicine
DX: I10 Essential (primary) hypertension (principal); E03.9 Hypothyroidism, unspecified
CPT/HCPCS: 94010; 94640; 94727; 94729

== ENCOUNTER → 2024-02-27 08:56 | Outpatient (BNV) | payer OTHER, SELFPAY | PROVIDERS: PCP Internal Medicine; Visit Provider Internal Medicine Pulmonary Disease | DX: R06.2 Wheezing (principal) | CPT/HCPCS: 94060; 94729 ==

== ENCOUNTER 2024-03-24 11:47 | Outpatient (AMB) | payer OTHER, SELFPAY ==
[2024-03-24 11:50] VITALS: BP 118/72; PULSE 74; O2SAT 98; BMI 27.7
--- NOTE | 2024-03-24 11:50 | MHC.PC.OV ---
Vital Signs 03/24/24 11:50 Height 6 ft 2 in Weight 216 lb BMI 27.7 BP 118/72 Blood Pressure Location Lt brachial Position Sitting Pulse 74 Pulse Source Pulse Oximeter Pulse Oximetry (%) 98 Oxygen Delivery Method Room Air Intake Visit Reasons: Breathing test follow up Allergies No Known Allergies Allergy (Verified 03/24/24 11:50) Medication List - Last Reconciled 03/25/24 by Raymond Jim MD blood pressure monitor (Blood Pressure Kit) As directed levothyroxine (Euthyrox) 50 mcg PO DAILY lisinopril 10 mg PO DAILY tadalafil (Cialis) 20 mg PO DAILY PRN Tobacco use date assessed: 06/09/23 Dental Screening Dental Screen Date: 06/09/23 HPI Breathing test follow up HPI Details dyspnea; could not perform full PFTs PFSH Surgical History No pertinent past surgical history Family History Other Mental health disorder Substance use disorder Social History Housing: Apartment Alcohol intake: current Alcohol intake frequency: a few times a week Patient Tobacco Use Status: Never used Tobacco Tobacco use type: Cigarette e-Cigarette/Vaping Use: Never Used Second Hand Smoke Exposure: No service: No Current occupational status: employed Cognitive needs: No Hearing needs: No Vision needs: No Questionnaire PHQ-9 Over the last 2 weeks, how often have you been bothered by any of the following problems? 1. Little interest or pleasure in doing things: not at all 2. Feeling down, depressed, or hopeless: not at all 3. Trouble falling or staying asleep, or sleeping too much: not at all 4. Feeling tired or having little energy: not at all 5. Poor appetite or overeating: not at all 6. Feeling bad about yourself - or that you are a failure or have let yourself or your family down: not at all 7. Trouble concentrating on things, such as reading the newspaper or watching television: not at all 8. Moving or speaking so slowly that other people could have noticed. Or the opposite - being so fidgety or restless that you have been moving around a lot more than usual: not at all 9. Thoughts that you would be better off or of hurting yourself in some way: not at all Total score: 0 Depression Screening Interpretation: Negative Depression Screening Done: Yes 59029 - PHQ-9 Billing: Yes Source: Developed by Drs. Tucker Dos Santos, Betty Hill, Zbigniew Barreto and colleagues, with an educational kimberly from [employer]. Thrive Questionnaire Date Thrive assessed: 06/09/23 Are you currently unemployed and looking for a job?: No AUDIT C Alcohol Use Questionnaire (AUDIT-C) 1. How often do you have a drink containing alcohol?: 2-3 times a week 2. How many drinks containing alcohol do you have on a typical day when you are drinking?: 5 or 6 3. How often do you have six or more drinks on one occasion?: Less than monthly Total Score: 6 Score Reviewed/Action Taken: Yes TAWANDA-7 AMB Questionnaire TAWANDA-7 Date TAWANDA - 7 assessed: 06/09/23 Source: Developed by Drs. Tucker Dos Santos, Betty Hill, Zbigniew Barreto and colleagues, with an educational kimberly from [employer]. Review of Systems Const Denies chills, Denies headache(s) and Denies weight loss ENT Denies headache(s) Card Denies chest pain, Denies syncope and Denies irregular heart rhythm Resp Denies chest congestion and Denies cough GI Denies abdominal pain, Denies change in stool character, Denies nausea and Denies vomiting Musc Denies deformity and Denies joint swelling Neuro Denies syncope and Denies headache(s) Physical exam (Primary Care) Vital Signs: Last Vital Signs Pulse 74 03/24/24 11:50 BP 118/72 03/24/24 11:50 Pulse Ox 98 03/24/24 11:50 Oxygen Delivery Method Room Air 03/24/24 11:50 BMI result Body Mass Index 27.7 Tobacco/Smoking Status: Tobacco use Status Tobacco use date assessed 06/09/23 03/24/24 11:54 Patient Tobacco Use Status Never used Tobacco 03/24/24 11:54 Tobacco use type Cigarette 03/24/24 11:54 e-Cigarette/Vaping Use Never Used 03/24/24 11:54 PHQ-9: PHQ-9 Score PHQ-9: Total score 0 03/24/24 11:54 Depression Screening Interpretation: Negative Thrive Assessment: Date of Thrive Assessment Date Thrive assessed 06/09/23 03/24/24 11:54 Const General: cooperative, comfortable, no acute distress and alert Neck Neck: Yes no lymphadenopathy Thyroid: Thyroid normal Resp Effort & Inspection: normal respiratory effort Auscultation: clear to auscultation bilaterally Percussion: percussion normal Cardio Jugular venous distension: no JVD Palpation: normal PMI Rate: regular rate Rhythm: regular rhythm Heart sounds: S1 normal heart sound present and S2 normal heart sound present GI Inspection: Yes normal to inspection Palpation (GI): No hepatosplenomegaly present Skin General skin exam: no rashes or lesions noted Extrem General: Yes no clubbing, cyanosis or edema Coding Level of Care Code Est Pt Level 3 (79377) Diagnoses Dyspnea R06.00 Additional Codes PHQ-9 - 87174 - PHQ-9 Billing: Yes ([id number]) Assessment & Plan Assessment & Plan (1) Dyspnea: Code(s): R06.00 - Dyspnea, unspecified Plan: ref to pulmonary Orders: Referrals Pulmonology Referral R06.00 - Dyspnea, unspecified
--- OUTSIDE RECORDS SUMMARY | 2024-03-25 01:53 | XMS_ITS ---
Author Organization [facility] Address [address] [place] [address] Care Team Providers Care Dag Coater Name Role Phone Raymond Jim MD Primary Care Provider Unavaila Tucker Ferris Unavailable [phone] REASON FOR VISIT CALL ME BACK Encounters Encounter Location Date Provider Diagnosis [facility] [address] [place] [address] 03/13/2023 Tucker Hunt PLAN OF TREATMENT No Information
--- OUTSIDE RECORDS SUMMARY | 2024-03-25 01:53 | XMS_ITS | Patient Health Record ---
Author Organization [facility] Address [address] [place] [address] Care Team Providers Care Sales And Service Associate Name Role Phone Raymond Jim MD Primary Care Provider Tucker Parekh Unavailable [phone] REASON FOR REFERRAL No Information SOCIAL HISTORY Sex Assigned At : Social History Observation Description Sex Assigned At Unknown PLAN OF TREATMENT No Information Insurance Providers Payer Name Payer Address Payer Phone Subscriber Number Group Number Insured Name Patient Relationship to Insured Coverage Start Date Coverage End Date [facility] [address] [place] [phone] [id number] MAY JAMES Self - patient is the insured
--- OUTSIDE RECORDS SUMMARY | 2024-03-25 01:53 | XMS_ITS | Continuity of Care Document ---
Author Organization [facility] Address [address] [place] [address] [address] [place] [phone] Phone Care Team Providers Care Outside Sales Advertising Executive Name Role Phone Nikolai ORTEGA, [place], Tucker [...] Providers Copied on Encounter [facility], [address] [place] [address] [address], [id number], [place] tel:[phone] [facility] No Information 4 Nikolai ORTEGA, KATELYN COLEMAN. [address] [facility] [address], [place], [place], [id number], [place]. tel:[phone] Referring Provider: Raymond Jim MD, [address] [facility] [address], [place], [address]. tel:[phone] Offic/outpt E&m Estab 5 Min Trial- Telemedicine [place] & [place] [facility], [address] [place] [address] [address]G[place], [id number], [place] tel:[phone] [facility]R - [facility] Cramp and spasmRestless legs syndromeVenou s insufficiency (chronic) (peripheral)P ruritus, unspecifiedEs sential (primary) hypertension 4 Xuan Sutton. [address] [facility], [address], [place], [id number], [place]. tel:[phone] Referring Provider: Raymond Jim MD, [address] [facility], [place], [address]. tel:[phone] Offic Cons New/estab Mod 40 Ak [facility], [address] [place] [address] [address] 1000[place], [id number], [place] tel:[phone] [facility] [place] Varicose veins of bilateral lower extremities with other complications Pain in right lower legPain in left lower legPain in right legRestless legs syndromeEssen tial (primary) hypertensionP ruritus, unspecifiedPa in in left legCramp and spasm 4 Nikolai ORTEGA RVT, KATELYN Ceballos. [address] [facility] [address], [place], [id number], [place]. tel:[phone] Referring Provider: Raymond Jim MD, [address] [facility], [place], [address]. tel:[phone] [place] [facility], [address] [place] [address] [address]nie [address], [place], [id number], [place] tel:[phone] [facility] Chronic venous hypertension (idiopathic) with other complications of bilateral lower extremity 4 Nikolai ORTEGA RVT, KATELYN Ceballos. [address] [facility], [address], [place], [id number], [place]. tel:[phone] Referring Provider: Raymond Jim MD, [address] [facility] [address] [facility], [place], [address]. tel:[phone] Family History Family Member Type Diagnosis Age At Onset No Information Payers Payer name Insurance type Covered democrat ID Authoriza tion(s) No Information Social History [...]
== END 2024-03-24 12:50 | disposition home or self-care (01) ==
PROVIDERS: PCP Internal Medicine; Visit Provider Internal Medicine
DX: R06.00 Dyspnea, unspecified (principal)

== ENCOUNTER → 2024-03-24 11:47 | Outpatient (BNVA) | payer OTHER, SELFPAY | PROVIDERS: PCP Internal Medicine; Visit Provider Internal Medicine | DX: R06.00 Dyspnea, unspecified (principal) | CPT/HCPCS: 96127 ==

== ENCOUNTER 2024-03-30 09:18 | Outpatient (AMB) | payer OTHER, SELFPAY ==
--- NOTE | 2024-03-30 09:20 | A.OFFVIS_ITS ---
Vital Signs 03/30/24 09:22 Height 6 ft 2 in Weight 218 lb 4 oz BMI 28.0 BP 116/78 Blood Pressure Location Rt brachial Position Sitting Pulse 64 Pulse Source Pulse Oximeter Pulse Oximetry (%) 97 Oxygen Delivery Method Room Air Intake Visit Reasons: Dyspnea Allergies No Known Allergies Allergy (Verified 03/30/24 09:25) HPI HPI Dyspnea: Details: Ar is a pleasant 48 year old male, never smoker, with underlying HTN. He was referred by PCP for pulmonary evaluation for worsening respiratory symptosm over the last year. He reports dyspnea on exertion, dry cough and intermittent wheezing. He also notes post nasal drip with associated itchy throat. He ensodrses seasonal allergies, no recent allergy testing. Denies any epts at home. He does report likely occupational exposures working in [employer] and now a [employer] x 10 years. He is unsure of any pertinent family history. He denies h/o asthma however did have second hand smoke exposure as a child. He did have recent PFT which revealed mild obstructive defect with no response to bronchodilator. DLCO normal however unable to perform lung volumes. Prior CXR 2021 unremarkable. [facility] Surgical History No pertinent past surgical history Family History Other Mental health disorder Substance use disorder Social History Housing: Apartment Alcohol intake: current Alcohol intake frequency: a few times a week Patient Tobacco Use Status: Never used Tobacco Tobacco use type: Cigarette e-Cigarette/Vaping Use: Never Used Second Hand Smoke Exposure: No service: No Current occupational status: employed Cognitive needs: No Hearing needs: No Vision needs: No Review of Systems Const Denies chills, Denies excessive sweating, Denies fever(s), Denies headache(s) and Denies night sweats Eyes Denies dry eyes, Denies irritation and Denies itchy eyes ENT Reports Normal hearing present, Denies headache(s), Denies nasal congestion, Denies nasal discharge and Denies sore throat Card Denies chest pain, Denies chest pain at rest, Denies chest pain with activity, Denies claudication, Denies leg edema, Denies orthopnea and Denies paroxysmal nocturnal dyspnea Resp Denies chest congestion, Denies excessive phlegm production, Denies pain on inspiration, Denies pain with cough and Denies stridor Musc Denies myalgias Neuro Reports Normal hearing present and Denies headache(s) Endo Denies excessive sweating Will/Lymph Denies lymphadenopathy Aller/Immun Denies itchy eyes and Denies seasonal rhinorrhea Physical Exam Vital Signs: Last Vital Signs Pulse 64 03/30/24 09:22 BP 116/78 03/30/24 09:22 Pulse Ox 97 03/30/24 09:22 Oxygen Delivery Method Room Air 03/30/24 09:22 BMI result Body Mass Index 28.0 Const General: cooperative, healthy appearing, comfortable, no acute distress, well developed and alert Orientation/consciousness: patient oriented x3 Limitations: no limitations HEENT Head: Yes normal to inspection, Yes normocephalic and Yes atraumatic Ears: hearing grossly normal bilaterally and external ears normal Eyes General: appearance normal, both eyes and all related structures Eyelids: Yes eyelids normal Sclerae: sclerae normal EOM: EOMs intact bilaterally Neck Neck: Yes normal visual inspection and Yes no lymphadenopathy Lymphatic: no lymphadenopathy noted Chest Chest palpation & inspection: normal inspection of the chest Resp Effort & Inspection: normal respiratory effort, able to speak in complete sentences, no audible wheezes, no cough, no stridor, not tachypneic, no tripod positioning and no use of accessory muscles Auscultation: clear to auscultation bilaterally Cardio Jugular venous distension: no JVD Rate: regular rate Rhythm: regular rhythm Skin Other: warm, dry General skin exam: no rashes or lesions noted Neuro General: patient oriented x3 Cranial nerves: Yes Normal hearing present Cognition (Neuro): normal cognition Gait exam (Neuro): Normal gait present Extrem General: Yes normal to inspection, Yes capillary refill normal, Yes no clubbing, cyanosis or edema and Yes no pedal edema Psych Appearance: grossly normal and well kempt Speech and movement: Normal speech and movement present and Clear speech present Affect: normal affect Attitude: cooperative Thought process: Normal thought process present Thought content: Normal thought content present Insight: Good insight present (Psych) Judgement: Good judgement present (Psych) Assessment & Plan Assessment & Plan (1) Asthma: Code(s): J45.909 - Unspecified asthma, uncomplicated Category: Medical (2) Chronic cough: Code(s): R05.3 - Chronic cough Category: Medical (3) Environmental allergies: Code(s): Z91.09 - Other allergy status, other than to drugs and biological substances Category: Medical Plan Ar's recent PFT revealed mild obstructive defect with elevated DLCO, suggestive of asthma however could not complete lung volumes. Will empirically treat with Breo and recommended wearing a mask while working. Discussed importance of good oral hygiene to prevent thrush. Given persistent respiratory symptoms will also send for CXR and send for RAST to rule out allergic contribution. All questions were answered and patient is in agreement of plan. Will follow up in 6-8 weeks or sooner if needed. Orders: Orders XR chest 2V Today R05.3 - Chronic cough Complete Blood Count Auto Diff Today Z91.09 - Other allergy status, other than to drugs and biological substances Resp Allergy Profile Region I Today Z91.09 - Other allergy status, other than to drugs and biological substances Immunoglobulin E Today Z91.09 - Other allergy status, other than to drugs and biological substances Medications: New fluticasone furoate-vilanterol 100-25 mcg/dose (Breo Ellipta) 1 inh inhalation DAILY 60 ea 6RF Coding Level of Care Code New Pt Level 4 (38159) Diagnoses Asthma J45.909 Chronic cough R05.3 Environmental allergies Z91.09
[2024-03-30 09:22] VITALS: BP 116/78; PULSE 64; O2SAT 97; BMI 28.0
--- OUTSIDE RECORDS SUMMARY | 2024-03-30 09:24 | XMS_ITS | Continuity of Care Document ---
Author Organization [facility] Address [address] [place] [address] [address] [place] [address] Phone Care Team Providers Care Tassel Clipper Name Role Phone Nikolai ORTEGA, [place], Tucker [...] Providers Copied on Encounter [facility], [address] [place] [address] [address], [id number], [place] tel:[phone] [facility] - [facility] No Information 4 Nikolai ORTEGA, KATELYN COLEMAN. [address] [facility] [address], [place], [place], [id number], [place]. tel:[phone] Referring Provider: Raymond Jim MD, [address] [facility] [address], [place], [address]. tel:[phone] Offic/outpt E&m Estab 5 Min Trial- Telemedicine [place] & [place] [facility], [address] [place] [address] [address], [id number], [place] tel:[phone] [facility] - [facility] Cramp and spasmRestless legs syndromeVenou s insufficiency (chronic) (peripheral)P ruritus, unspecifiedEs sential (primary) hypertension 4 Xuan Sutton. [address] [facility], [address], [place], [id number], [place]. tel:[phone] Referring Provider: Raymond Jim MD, [address] [facility], [place], [address]. tel:[phone] Offic Cons New/estab Mod 40 Ma [facility], [address] [place] [address] [address], [id number], [place] tel:[phone] [facility] - [place] [facility] [place] Varicose veins of bilateral lower extremities with other complications Pain in right lower legPain in left lower legPain in right legRestless legs syndromeEssen tial (primary) hypertensionP ruritus, unspecifiedPa in in left legCramp and spasm 4 Nikolai ORTEGA RVT, KATELYN Ceballos. [address] [facility] [address], [place], [id number], [place]. tel:[phone] Referring Provider: Raymond Jim MD, [address] [facility], [place], [address]. tel:[phone] [facility], [address] [place] [address] [address], [place], [id number], [place] tel:[phone] [facility] - [place] [facility] [place] Chronic venous hypertension (idiopathic) with other complications of bilateral lower extremity 4 Nikolai ORTEGA RVT, KATELYN Ceballos. [address] [facility], [address], [place], [id number], [place]. tel:[phone] Referring Provider: Raymond Jim MD, [address] [facility] [address] [facility], [place], [address]. tel:[phone] Family History Family Member Type Diagnosis Age At Onset No Information Payers Payer name Insurance type Covered libertarian ID Authoriza tion(s) No Information Social History [...]
--- OUTSIDE RECORDS SUMMARY | 2024-03-30 09:24 | XMS_ITS | Patient Health Record ---
Author Organization [facility] Address [address] [place] [address] Care Team Providers Care Loan Consultant Name Role Phone Raymond Jim MD Primary Care Provider Tucker Parekh Unavailable [phone] REASON FOR REFERRAL No Information SOCIAL HISTORY Sex Assigned At : Social History Observation Description Sex Assigned At Unknown PLAN OF TREATMENT No Information Insurance Providers Payer Name Payer Address Payer Phone Subscriber Number Group Number Insured Name Patient Relationship to Insured Coverage Start Date Coverage End Date [facility] [address] [facility] [place] [id number] [phone] [id number] MAY JAMES Self - patient is the insured
--- OUTSIDE RECORDS SUMMARY | 2024-03-30 09:24 | XMS_ITS ---
Author Organization [facility] Address [address] [place] [address] Care Team Providers Care Digitizer Name Role Phone Raymnod Jim MD Primary Care Provider Unavaila Tucker Ferris Unavailable [phone] REASON FOR VISIT CALL ME BACK Encounters Encounter Location Date Provider Diagnosis [facility] [address] [place] [id number] 03/13/2023 Tucker Hunt PLAN OF TREATMENT No Information
== END 2024-03-30 09:44 | disposition home or self-care (01) ==
PROVIDERS: PCP Internal Medicine; Referring Provider Internal Medicine; Visit Provider Nurse Practitioner Family
DX: J45.909 Unspecified asthma, uncomplicated (principal); R05.3 Chronic cough; Z91.09 Other allergy status, other than to drugs and biological substances
CPT/HCPCS: 99204

== ENCOUNTER → 2024-03-30 09:18 | Outpatient (BNVA) | payer OTHER, SELFPAY | PROVIDERS: PCP Internal Medicine; Referring Provider Internal Medicine; Visit Provider Nurse Practitioner Family ==

== ENCOUNTER 2024-03-30 10:01 | Outpatient (REF) | payer OTHER, SELFPAY ==
--- OUTSIDE RECORDS SUMMARY | 2024-03-30 10:04 | XMS_ITS | Continuity of Care Document ---
Author Organization [facility] Address [address] [place] [address] Dr [address] [place] [address] Phone Care Team Providers Care Associate Software Engineer Name Role Phone Nikolai ORTEGA, [place], Tucker [...] Providers Copied on Encounter [facility], [address] [place] [address] [address], [id number], [place] tel:[phone] [facility] No Information 4 Nikolai ORTEGA, KATELYN COLEMAN. [address] [facility] [address], [place], [place], [id number], [place]. tel:[phone] Referring Provider: Raymond Jim MD, [address] [facility] [address], [place], [address]. tel:[phone] Offic/outpt E&m Estab 5 Min Trial- Telemedicine [place] & [place] [facility], [address] [place] [address] [address], [id number], [place] tel:[phone] [facility] - [facility] Cramp and spasmRestless legs syndromeVenou s insufficiency (chronic) (peripheral)P ruritus, unspecifiedEs sential (primary) hypertension 4 Xuan Sutton. [address] [facility], [address], [place], [id number], [place]. tel:[phone] Referring Provider: Raymond Jim MD, [address] [facility], [place], [address]. tel:[phone] Offic Cons New/estab Mod 40 Mo [facility], [address] [place] [address] [address], [id number], [place] tel:[phone] [facility] - [place] [facility] [place] Varicose veins of bilateral lower extremities with other complications Pain in right lower legPain in left lower legPain in right legRestless legs syndromeEssen tial (primary) hypertensionP ruritus, unspecifiedPa in in left legCramp and spasm 4 Nikolai ORTEGA RVT, KATELYN Ceballos. [address] [facility] [address], [place], [id number], [place]. tel:[phone] Referring Provider: Raymond Jim MD, [address] [facility], [place], [address]. tel:[phone] [place] [facility], [address] [place] [address] [address], [place], [id number], [place] tel:[phone] [facility] - [place] [facility] [place] Chronic venous hypertension (idiopathic) with other complications of bilateral lower extremity 4 Nikolai ORTEGA RVT, KATELYN Ceballos. [address] [facility], [address], [place], [id number], [place]. tel:[phone] Referring Provider: Raymond Jim MD, [address] [facility] [address] SU[address] [facility], [place], [address]. tel:[phone] Family History Family Member Type Diagnosis Age [...]
[2024-03-30 11:09] LABS: MANUAL DIFF FLAG NO
[2024-03-30 11:13] LABS: Basophils Absolute Auto 0.1 X10*3/uL (0.0-0.2); Basophils Percent Auto 1.3 % (0-2); Eosinophils Absolute Auto 0.3 X10*3/uL (0.0-0.4); Hematocrit 42.6 % (42.0-52.0); Hemoglobin 14.2 g/dl (14.0-18.0); Imm Gran Abs Auto 0.01 X10*3/uL (0.00-0.03); Imm Gran Pct Auto 0.3 % (0.0-0.4); Lymphocytes Absolute Auto 1.6 X10*3/uL (1.2-4.9); Lymphocytes Percent Auto 42.6 % (20-40); Mean Corpuscular HGB Conc 33.3 g/dl (31.0-36.0); Mean Corpuscular Hemoglobin 29.6 pg (27.0-33.0); Mean Corpuscular Volume 88.8 fL (80.0-98.0); Mean Platelet Volume 9.3 fL (9.4-12.4); Monocytes Absolute Auto 0.4 X10*3/uL (0.1-1.2); Monocytes Percent Auto 9.9 % (2-11); Neutrophils Absolute Auto 1.5 x10*3/uL (2.0-8.3); Neutrophils Percent Auto 38.9 % (45-73); Platelet Count 305 X10*3/uL (160-400); Red Cell Distribution Width 12.9 % (11.0-16.0); White Blood Count 3.8 X10*3/uL (4.8-10.8)
[2024-03-31 20:29] LABS: Immunoglobulin E 31 kU/L (<OR=114)
[2024-04-01 13:39] LABS: Class Alternaria alternata 0; Class Aspergillus fumigatus 0; Class Bermuda Grass 0/1; Class Birch 2; Class Cat Dander 0; Class Cladosporium herbarum 0; Class Cockroach 0/1; Class Common Ragweed 0/1; Class Cottonwood 0/1; Class Derm. pterony 0/1; Class Dermatophagoides farinae 0; Class Dog Dander 0; Class Elm 0/1; Class Maple Box Elder 0/1; Class Mountain Cedar 0/1; Class Mouse Urine Protein 0/1; Class Mugwort 0/1; Class Oak 1; Class Penicillium crysogenum 0; Class Rough Pigweed 0/1; Class Sheep Sorrel 0/1; Class Sycamore 0/1; Class Timothy Grass 0/1; Class Walnut Tree 1; Class White Ash 1; Class White Mulberry 0; D001 IgE D pteronyssinus 0.12 kU/L; D002 - IgE D farinae <0.10 kU/L; E001 - IgE Cat Dander <0.10 kU/L; E005 - IgE Dog Dander <0.10 kU/L; E072-IgE Mouse Urine 0.22 kU/L; G002 IgE Bermuda Grass 0.28 kU/L; G006 - IgE Timothy Grass 0.23 kU/L; I006-IgE Cockroach, German 0.25 kU/L; Immunoglobulin E 32 kU/L (<OR=114); M001 IgE Penicillium chrysogen <0.10 kU/L; M002 - IgE Cladosporium herbar <0.10 kU/L; M003 - IgE Aspergillus fumigat <0.10 kU/L; M006 - IgE Alternaria alternat <0.10 kU/L; T001 IgE Maple/Box Elder 0.27 kU/L; T003 IgE Common Silver Birch 0.89 kU/L; T006 - IgE Cedar, Mountain 0.16 kU/L; T008 IgE Elm, American 0.25 kU/L; T010 - IgE Walnut 0.38 kU/L; T011 - IgE Maple Leaf Sycamore 0.18 kU/L; T014 - IgE Cottonwood 0.23 kU/L; T015 - IgE Ash, White 0.39 kU/L; T070 - IgE White Mulberry <0.10 kU/L; W001 - IgE Ragweed, Short 0.33 kU/L; W006 - IgE Mugwort 0.23 kU/L; W014 IgE Pigweed, Common 0.16 kU/L; W018 IgE Sheep Sorrel 0.29 kU/L
== END 2024-03-30 10:02 | disposition home or self-care (01) ==
LOC: HO.WFDLDS 10:01
PROVIDERS: Visit Provider Nurse Practitioner Family
DX: Z91.09 Other allergy status, other than to drugs and biological substances (principal)
CPT/HCPCS: 36415; 82785; 85025; 86003

== ENCOUNTER 2024-04-12 08:42 | Outpatient (AMB) | payer OTHER, SELFPAY ==
--- NOTE | 2024-04-12 08:45 | A.OFFPC_ITS ---
Vital Signs 04/12/24 08:46 Height 6 ft 2 in Weight 216 lb 2 oz BMI 27.7 BP 130/88 Blood Pressure Location Lt brachial Position Sitting Pulse 70 Pulse Source Pulse Oximeter Pulse Oximetry (%) 98 Oxygen Delivery Method Room Air Intake Visit Reasons: 3mth f/u Intake Note: Patient is here to follow up on Asthma, HTN. Retail Planner Required: No Utility Worker Production: Present Accompanied by: Spouse Allergies No Known Allergies Allergy (Verified 04/12/24 08:46) Tobacco use date assessed: 04/12/24 Dental Screening Dental Screen Date: 06/09/23 HPI 3mth f/u HPI Details HTN on Rx; doing well; compliant [facility] Surgical History No pertinent past surgical history Family History Other Mental health disorder Substance use disorder Social History Housing: Apartment Alcohol intake: current Alcohol intake frequency: a few times a week Patient Tobacco Use Status: Never used Tobacco Tobacco use type: Cigarette e-Cigarette/Vaping Use: Never Used Second Hand Smoke Exposure: No service: No Current occupational status: employed Cognitive needs: No Hearing needs: No Vision needs: No Questionnaire Thrive Questionnaire Date Thrive assessed: 06/09/23 Are you currently unemployed and looking for a job?: No TAWANDA-7 AMB Questionnaire TAWANDA-7 Date TAWANDA - 7 assessed: 06/09/23 Source: Developed by Drs. Tucker Dos Santos, Betty Hill, Zbigniew Barreto and colleagues, with an educational kimberly from [employer]. Review of Systems Const Denies chills, Denies headache(s) and Denies weight loss ENT Denies headache(s) Card Denies chest pain, Denies syncope, Denies irregular heart rhythm and Denies dyspnea Resp Denies chest congestion, Denies cough and Denies dyspnea GI Denies abdominal pain, Denies change in stool character, Denies nausea and Denies vomiting Musc Denies deformity and Denies joint swelling Neuro Denies syncope and Denies headache(s) Physical exam (Primary Care) Vital Signs: Last Vital Signs Pulse 70 04/12/24 08:46 BP 130/88 04/12/24 08:46 Pulse Ox 98 04/12/24 08:46 Oxygen Delivery Method Room Air 04/12/24 08:46 BMI result Body Mass Index 27.7 Tobacco/Smoking Status: Tobacco use Status Tobacco use date assessed 04/12/24 04/12/24 08:50 Patient Tobacco Use Status Never used Tobacco 04/12/24 08:50 Tobacco use type Cigarette 04/12/24 08:50 e-Cigarette/Vaping Use Never Used 04/12/24 08:50 Thrive Assessment: Date of Thrive Assessment Date Thrive assessed 06/09/23 04/12/24 08:50 Const General: cooperative, comfortable, no acute distress and alert Neck Neck: Yes no lymphadenopathy Thyroid: Thyroid normal Resp Effort & Inspection: normal respiratory effort Auscultation: clear to auscultation bilaterally Percussion: percussion normal Cardio Jugular venous distension: no JVD Palpation: normal PMI Rate: regular rate Rhythm: regular rhythm Heart sounds: S1 normal heart sound present and S2 normal heart sound present GI Inspection: Yes normal to inspection Palpation (GI): No hepatosplenomegaly present Skin General skin exam: no rashes or lesions noted Extrem General: Yes no clubbing, cyanosis or edema Coding Level of Care Code Est Pt Level 3 (72315) Diagnoses Hypertension I10 Assessment & Plan Assessment & Plan (1) Hypertension: Code(s): I10 - Essential (primary) hypertension Category: Medical Plan: stable on Rx
--- OUTSIDE RECORDS SUMMARY | 2024-04-12 08:45 | XMS_ITS ---
Author Organization [facility] Address [address] [place] [address] Care Team Providers Care Wire Charger Name Role Phone Raymond Jim MD Primary Care Provider Unavaila Tucker Ferris Unavailable [phone] REASON FOR VISIT CALL ME BACK Encounters Encounter Location Date Provider Diagnosis [facility] [address] [place] [id number] 03/13/2023 Tucker Hunt PLAN OF TREATMENT No Information
[2024-04-12 08:46] VITALS: BP 130/88; PULSE 70; O2SAT 98; BMI 27.7
--- OUTSIDE RECORDS SUMMARY | 2024-04-12 08:46 | XMS_ITS | Patient Health Record ---
Author Organization [facility] Address [address] [place] [address] Care Team Providers Care Adjunct Physics Instructor Name Role Phone Raymond Jim MD Primary Care Provider Tucker Parekh Unavailable [phone] REASON FOR REFERRAL No Information SOCIAL HISTORY Sex Assigned At : Social History Observation Description Sex Assigned At Unknown PLAN OF TREATMENT No Information Insurance Providers Payer Name Payer Address Payer Phone Subscriber Number Group Number Insured Name Patient Relationship to Insured Coverage Start Date Coverage End Date [facility] [address] [place] [address] [phone] [id number] MAY JAMES Self - patient is the insured
== END 2024-04-12 08:57 | disposition home or self-care (01) ==
PROVIDERS: PCP Internal Medicine; Visit Provider Internal Medicine
DX: I10 Essential (primary) hypertension (principal)

== ENCOUNTER 2024-06-03 09:21 | Outpatient (REF) | payer OTHER, SELFPAY ==
--- NOTE | ~2024-06-03 | XR_ITS ---
EXAMINATION: XR CHEST CLINICAL INFORMATION: R05.3 - Chronic cough COMPARISON: 01/02/2022. TECHNIQUE: 2 views of the chest were obtained. FINDINGS: The cardiac, hilar, and mediastinal contours are normal. The lungs are well inspired, and clear bilaterally. There is no pneumothorax or pleural effusion. There is no focal osseous or soft tissue abnormality. XR/XR chest 2V IMPRESSION: Normal chest. Electronically signed by: Herman Roberts MD 06/03/2024 09:47 AM [facility]
--- OUTSIDE RECORDS SUMMARY | 2024-06-03 10:07 | XMS_ITS ---
Author Organization [facility] Address [address] [place] [address] Care Team Providers Care Society Editor Name Role Phone Raymond Jim MD Primary Care Provider Unavaila Tucker Ferris Unavailable [phone] REASON FOR VISIT CALL ME BACK Encounters Encounter Location Date Provider Diagnosis [facility] [address] [place] [phone] 03/13/2023 Tucker Hunt PLAN OF TREATMENT No Information
--- OUTSIDE RECORDS SUMMARY | 2024-06-03 10:07 | XMS_ITS | Continuity of Care Document ---
Author Organization [facility] Address [address] [place] [address] Dr [address] [place] [address] Phone Care Team Providers Care Bottle Caser Name Role Phone Nikolai ORTEGA, [place], Tucker [...] Providers Copied on Encounter [facility], [address] [place] [address] [address], [id number], [place] tel:[phone] [facility] No Information 4 Nikolai ORTEGA, KATELYN COLEMAN. [address] [facility] [address], [place], [place], [id number], [place]. tel:[phone] Referring Provider: Raymond Jim MD, [address] [facility] [address], [place], [address]. tel:[phone] Offic/outpt E&m Estab 5 Min Trial- Telemedicine [place] & [place] [facility], [address] [place] [address] [address], [id number], [place] tel:[phone] [facility] - [facility] Cramp and spasmRestless legs syndromeVenou s insufficiency (chronic) (peripheral)P ruritus, unspecifiedEs sential (primary) hypertension 4 Xuan Sutton. [address] [facility], [address], [place], [id number], [place]. tel:[phone] Referring Provider: Raymond Jim MD, [address] [facility], [place], [address]. tel:[phone] Offic Cons New/estab Mod 40 Or [facility], [address] [place] [address] [address] 1000[place], [id number], [place] tel:[phone] [facility] - [place] [facility] [place] Varicose veins of bilateral lower extremities with other complications Pain in right lower legPain in left lower legPain in right legRestless legs syndromeEssen tial (primary) hypertensionP ruritus, unspecifiedPa in in left legCramp and spasm 4 Nikolai ORTEGA RVT, KATELYN Ceballos. [address] [facility] [address], [place], [id number], [place]. tel:[phone] Referring Provider: Raymond Jim MD, [address] [facility], [place], [address]. tel:[phone] [place] [facility], [address] [place] [address] [address], [place], [id number], [place] tel:[phone] CVR - [place] [facility] [place] Chronic venous hypertension (idiopathic) with other complications of bilateral lower extremity 4 Nikolai ORTEGA RVT, KATELYN Ceballos. [address] [facility], [address], [place], [id number], [place]. tel:[phone] Referring Provider: Raymond Jim MD, [address] [facility] [address] [facility], [place], [address]. tel:[phone] Family History Family Member Type Diagnosis Age [...]
--- OUTSIDE RECORDS SUMMARY | 2024-06-03 10:07 | XMS_ITS | Patient Health Record ---
Author Organization [facility] Address [address] [place] [address] Care Team Providers Care Sizing Sponger Name Role Phone Raymond Jim MD Primary Care Provider Tucker Parekh Unavailable [phone] REASON FOR REFERRAL No Information SOCIAL HISTORY Sex Assigned At : Social History Observation Description Sex Assigned At Unknown PLAN OF TREATMENT No Information Insurance Providers Payer Name Payer Address Payer Phone Subscriber Number Group Number Insured Name Patient Relationship to Insured Coverage Start Date Coverage End Date [facility] [address] [facility] [place] [phone] [id number] MAY JAMES Self - patient is the insured
== END 2024-06-03 09:22 | disposition home or self-care (01) ==
LOC: HO.XRAY 09:21
PROVIDERS: PCP Internal Medicine; Visit Provider Nurse Practitioner Family
DX: R05.3 Chronic cough (principal)
CPT/HCPCS: 71046

== ENCOUNTER → 2024-06-03 09:27 | Outpatient (BNV) | payer OTHER, SELFPAY | PROVIDERS: PCP Internal Medicine; Visit Provider Radiology Diagnostic Radiology | DX: R05.3 Chronic cough (principal) | CPT/HCPCS: 71046 ==

== ENCOUNTER 2024-06-28 09:45 | Outpatient (AMB) | payer OTHER, SELFPAY ==
--- NOTE | 2024-06-28 09:46 | A.OFFPC_ITS ---
Vital Signs 06/28/24 09:48 Height 6 ft 2 in Weight 216 lb 8 oz BMI 27.8 BP 132/78 Blood Pressure Location Lt brachial Position Sitting Pulse 80 Pulse Source Pulse Oximeter Temp 97.5 F Temp Source Temporal Artery Scan Pulse Oximetry (%) 97 Oxygen Delivery Method Room Air Intake Visit Reasons: 3 Month F/U Intake Note: Patient is here to follow up on HTN. 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 Accompanied by: Spouse Allergies No Known Allergies Allergy (Verified 06/28/24 09:47) Medication List - Last Reconciled 06/28/24 by Raymond Jim MD blood pressure monitor (Blood Pressure Kit) As directed fluticasone propion-salmeterol 115-21 mcg/actuation (Advair HFA) 2 puffs inhalation Q12H levothyroxine (Euthyrox) 50 mcg PO DAILY lisinopril 10 mg PO DAILY tadalafil (Cialis) 20 mg PO DAILY PRN Tobacco use date assessed: 06/28/24 Dental Screening Dental Screen Date: 06/28/24 Did you have a dental visit in the last 12 months?: Yes Did you have a dental problem in the last 6 months where you did not have access to dental care?: No Was dental information given to patient?: Patient has dentist HPI 3 Month F/U HPI Details hypothyroidism and hypertension; doing well; compliant [facility] Surgical History No pertinent past surgical history Family History Other Mental health disorder Substance use disorder Social History Housing: Apartment Alcohol intake: current Alcohol intake frequency: a few times a week Patient Tobacco Use Status: Never used Tobacco Tobacco use type: Cigarette e-Cigarette/Vaping Use: Never Used Second Hand Smoke Exposure: No service: No Current occupational status: employed Cognitive needs: No Hearing needs: No Vision needs: No Questionnaire PHQ-9 Over the last 2 weeks, how often have you been bothered by any of the following problems? 1. Little interest or pleasure in doing things: not at all 2. Feeling down, depressed, or hopeless: not at all 3. Trouble falling or staying asleep, or sleeping too much: not at all 4. Feeling tired or having little energy: not at all 5. Poor appetite or overeating: not at all 6. Feeling bad about yourself - or that you are a failure or have let yourself or your family down: not at all 7. Trouble concentrating on things, such as reading the newspaper or watching television: not at all 8. Moving or speaking so slowly that other people could have noticed. Or the opposite - being so fidgety or restless that you have been moving around a lot more than usual: not at all 9. Thoughts that you would be better off or of hurting yourself in some way: not at all Total score: 0 Depression Screening Interpretation: Negative Depression Screening Done: Yes Source: Developed by Drs. Tucker Dos Santos, Betty Hill, Zbigniew Barreto and colleagues, with an educational kimberly from [employer]. Thrive Questionnaire Date Thrive assessed: 06/28/24 I am a: Patient What is your living situation today?: I have a steady place to live Within the past 12 months, did the food you bought not last and you didn't have the money to get more?: Never true Within the past 12 months, did you worry whether your food would run out before you got money to buy more?: Never true Do you have trouble paying for medicines?: No Do you have trouble getting transportation to medical appointments?: No Do you have trouble paying your heating and electricity bill?: No Do you have trouble taking care of your child, family member or friend?: No Do you have trouble with day-to-day activities such as bathing, preparing meals, shopping, managing finances, etc.?: No Are you currently unemployed and looking for a job?: No Are you interested in more education?: No Please select the resources that you would like help with: None Currently or been in a relationship where the following occur: No concerns reported THRIVE Score: 0 TAWANDA-7 AMB Questionnaire TAWANDA-7 Date TAWANDA - 7 assessed: 06/28/24 Feeling nervous, anxious, or on edge: 0 = Not at all Not being able to stop or control worryin = Not at all Worrying too much about different things: 0 = Not at all Trouble relaxin = Not at all Being so restless that it is hard to sit still: 0 = Not at all Becoming easily annoyed or irritable: 0 = Not at all Feeling afraid as if something awful might happen: 0 = Not at all Total TAWANDA-7 score (0-4 normal; 5-9 mild; 10-14 moderate; 15-21 severe): 0 Source: Developed by Drs. Tucker Dos Santos, Betty Hill, Zbigniew Barreto and colleagues, with an educational kimberly from [employer]. Review of Systems Const Denies chills, Denies headache(s) and Denies weight loss ENT Denies headache(s) Card Denies chest pain, Denies syncope, Denies irregular heart rhythm and Denies d yspnea Resp Denies chest congestion, Denies cough and Denies dyspnea GI Denies abdominal pain, Denies change in stool character, Denies nausea and Den ies vomiting Musc Denies deformity and Denies joint swelling Neuro Denies syncope and Denies headache(s) Physical exam (Primary Care) Vital Signs: Last Vital Signs Temp 97.5 F 06/28/24 09:48 Pulse 80 06/28/24 09:48 BP 132/78 06/28/24 09:48 Pulse Ox 97 06/28/24 09:48 Oxygen Delivery Method Room Air 06/28/24 09:48 BMI result Body Mass Index 27.8 Tobacco/Smoking Status: Tobacco use Status Tobacco use date assessed 06/28/24 06/28/24 09:52 Patient Tobacco Use Status Never used Tobacco 06/28/24 09:52 Tobacco use type Cigarette 06/28/24 09:52 e-Cigarette/Vaping Use Never Used 06/28/24 09:52 PHQ-9: PHQ-9 Score PHQ-9: Total score 0 06/28/24 09:52 Depression Screening Interpretation: Negative Thrive Assessment: Date of Thrive Assessment Date Thrive assessed 06/28/24 06/28/24 09:52 Currently or been in a relationship where the following occur: No concerns reported Const General: cooperative, comfortable, no acute distress and alert Neck Neck: Yes no lymphadenopathy Thyroid: Thyroid normal Resp Effort & Inspection: normal respiratory effort Auscultation: clear to auscultation bilaterally Percussion: percussion normal Cardio Jugular venous distension: no JVD Palpation: normal PMI Rate: regular rate Rhythm: regular rhythm Heart sounds: S1 normal heart sound present and S2 normal heart sound present GI Inspection: Yes normal to inspection Palpation (GI): No hepatosplenomegaly present Skin General skin exam: no rashes or lesions noted Extrem General: Yes no clubbing, cyanosis or edema Coding Level of Care Code Est Pt Level 3 (23284) Diagnoses Hypothyroidism E03.9 Hypertension I10 Assessment & Plan Assessment & Plan (1) Hypothyroidism: Code(s): E03.9 - Hypothyroidism, unspecified Category: Medical Plan: stable; same rx (2) Hypertension: Code(s): I10 - Essential (primary) hypertension Category: Medical Plan: stable; same rx Medications: Refilled lisinopril 10 mg PO DAILY 90 tabs 0RF
[2024-06-28 09:48] VITALS: BP 132/78; PULSE 80; TEMP 36.4; O2SAT 97; BMI 27.8
--- OUTSIDE RECORDS SUMMARY | 2024-06-28 10:41 | XMS_ITS | Patient Health Record ---
Author Organization [facility] Address [address] [place] [address] Care Team Providers Care Accident Examiner Name Role Phone Raymond Jim MD Primary Care Provider Tucker Parekh Unavailable [phone] Reason For Referral No Information Plan Of Treatment No Information Insurance Providers Payer Name Payer Address Payer Phone Subscriber Number Group Number Insured Name Patient Relationship to Insured Coverage Start Date Coverage End Date [facility] [address] [place] [phone] [id number] MAY JAMES Self - patient is the insured
--- OUTSIDE RECORDS SUMMARY | 2024-06-28 10:42 | XMS_ITS ---
Author Organization [facility] Address [address] [place] [address] Care Team Providers Care Molder Shoulder Pad Name Role Phone Diandra ORTEGA, Raymond Primary Care Provider Tucker Parekh [phone] REASON FOR VISIT CALL ME BACK Encounters Encounter Location Date Provider Diagnosis [facility] [address] [place] [id number] 03/13/2023 Tucker Hunt Plan Of Treatment No Information Progress Notes * MAY JAMES MDOB: 6 (47 yo M)Acc No.[id number]:03/13/2023 Patient:?MAY JAMES :1975???Age:47 Y???Sex:Male Address:[address] [place] [address], [id number] * true * Date:? Generated for Gurpreet don/Zandra/eTransmitting on:?06/28/2024 10:41 AM EDT
== END 2024-06-28 10:05 | disposition home or self-care (01) ==
LOC: HO.HMCH 09:45
PROVIDERS: PCP Internal Medicine; Visit Provider Internal Medicine
DX: E03.9 Hypothyroidism, unspecified (principal); I10 Essential (primary) hypertension

== ENCOUNTER → 2024-06-28 09:45 | Outpatient (BNVA) | payer OTHER, SELFPAY | PROVIDERS: PCP Internal Medicine; Visit Provider Internal Medicine ==

== ENCOUNTER 2024-09-30 09:04 | Outpatient (AMB) | payer OTHER, SELFPAY ==
--- OUTSIDE RECORDS SUMMARY | 2024-02-17 20:00 | XMS_ITS | Continuity of Care Document ---
Author Organization [facility] Address [address] [place] [address] Dr [address] [place] [address] Phone Care Team Providers Care Potash Flaker Name Role Phone Nikolai ORTEGA, [place], Tucker ZEPEDA Unavailable U navailable Procedures Procedure Date Offic/outpt E&m Estab 5 Min Trial- Telem edicine [place] & [place] Offic Cons New/estab Mod 40 Mi 24 Duplex Scan-extrem Veins; Comp 24 Advance Directives Directive Yes / No Effective Date File Name No Information Encounters Encounter Description Practice Location Reason(s) For Visit Diagnoses Date Provider Providers Copied on Encounter [facility], [address] [place] [address] [address]G[place], [id number], [place] tel:[phone] [facility] - [facility] No Information 4 Nikolai ORTEGA, KATELYN COLEMAN. [address] [facility] [address], [place], [place], [id number], [place]. tel:[phone] Referring Provider: Raymond Jim MD, [address] [facility] [address], [place], [address]. tel:[phone] Offic/outpt E&m Estab 5 Min Trial- Telemedicine [place] & [place] [facility], [address] [place] [address] [address]Gely [place], [id number], [place] tel:[phone] [facility] - [facility] Cramp and spasmRestless legs syndromeVenou s insufficiency (chronic) (peripheral)P ruritus, unspecifiedEs sential (primary) hypertension 4 Xuan Sutton. [address] [facility], [address], [place], [id number], [place]. tel:[phone] Referring Provider: Raymond Jim MD, [address] [facility], [place], [address]. tel:[phone] Offic Cons New/estab Mod 40 Vt [facility], [address] [place] [address] [address] 1000Gely [place], [id number], [place] tel:[phone] [facility] [place] [facility] [place] Varicose veins of bilateral lower extremities with other complications Pain in right lower legPain in left lower legPain in right legRestless legs syndromeEssen tial (primary) hypertensionP ruritus, unspecifiedPa in in left legCramp and spasm 4 Nikolai ORTEGA RVT, KATELYN Ceballos. [address] [facility] [address], [place], [id number], [place]. tel:[phone] Referring Provider: Raymond Jim MD, [address] [facility], [place], [address]. tel:[phone] [place] [facility], [address] [place] [address] Arnie [address], [place], [id number], [place] tel:[phone] [facility] [place] [facility] [place] Chronic venous hypertension (idiopathic) with other complications of bilateral lower extremity 4 Nikolai ORTEGA RVT, KATELYN Ceballos. [address] [facility], [address], [place], [id number], [place]. tel:[phone] Referring Provider: Raymond Jim MD, [address] [facility] [address] [facility], [place], [address]. tel:[phone] Family History Family Member Type Diagnosis Age At Onset No Information Payers Payer name Insurance type Covered green party ID Authoriza tion(s) No Information Social History Type Description Quantity Date Captured Comments Sex Male Smoking Status No Information Chief Complaint And Reason For Visit No Information Reason For Referral Reason For Referral No Information Plan Of Treatment Date Type Action Status Goal Diet education completed Referral Ordered: Weight management: Referral to physician timeframe: 3 Months (related to Body mass index (BMI) 27.0-27.9, adult) ordered History Of Present Illness Encounter Date Complaint History Of Prese nt Illness No Information Functional Status Date Functional Assessmen t No Information Instructions Date Instruction Additional Infor mation Compression stocking usage as conservative measure Related to Cramp and spasm Patient education booklet given Related to Cramp and spasm Diet education Related to Body mass index (BMI) 27.0-27.9, adult Giving Encouragement to exercise Related to Body mass index (BMI) 27.0-27.9, adult Lifestyle education Related to B victoria mass index (BMI) 27.0-27.9, adult Patient education booklet given Related to Varicose veins of bilateral lower extremities with other complications Pre and post instruc tions reviewed and provided Related to Varicose veins of bilateral lower extremities with other complications Assessments Type Assessment Date No Information Patient Care Teams Name Effective Dates (start - stop) Status Members No Information
[2024-09-30 09:06] VITALS: BP 136/86; PULSE 76; TEMP 36.1; O2SAT 97; BMI 27.8
--- NOTE | 2024-09-30 09:06 | A.OFFPC_ITS ---
Vital Signs 09/30/24 09:06 Height 6 ft 2 in Weight 216 lb 4 oz BMI 27.8 BP 136/86 Blood Pressure Location Lt brachial Position Sitting Pulse 76 Pulse Source Pulse Oximeter Temp 96.9 F Temp Source Temporal Artery Scan Pulse Oximetry (%) 97 Oxygen Delivery Method Room Air Intake Visit Reasons: Annual Exam/ ATIF from Dr. Jim - see comment Tower Hoist Operator Required: Yes Tower Hoist Operator Language: Dinkey Engine Operator Name: ID # [id number] Accompanied by: Self / Same As Patient Allergies No Known Allergies Allergy (Verified 09/30/24 09:18) Medication List - Last Reconciled 09/30/24 by Marco A Prince PA-C blood pressure monitor (Blood Pressure Kit) As directed fluticasone propion-salmeterol 115-21 mcg/actuation (Advair HFA) 2 puffs inhalation Q12H levothyroxine (Euthyrox) 50 mcg PO DAILY lisinopril 10 mg PO DAILY tadalafil (Cialis) 20 mg PO DAILY PRN Tobacco use date assessed: 06/28/24 Dental Screening Dental Screen Date: 06/28/24 HPI Annual Exam/ ATIF from Dr. Jim - see comment HPI Details Patient is a 48-year-old male here today for new patient annual physical. Previous PCP was Dr. Jim. Patient has a past medical history of asthma, hypothyroidism, hypertension. -Concern--> reports left leg pain associ ated with varicose veins. He does report standing for long periods of time at his job which is associated with the pain. He is interested in a compression stocking to help reduce his lower leg pain .. HTN: Patient's blood pressure acceptable with current dose of lisinopril .. Asthma : Asthma has been well controlled with current maintenance inhaler, followed by [facility]. Has multiple environmental allergies noted on recent allergy testing. Vaccines: Up-to-date with COVID, needs pneumonia and tetanus vaccines Colorectal cancer screening: In need of colorectal cancer screening- willing to do Cologuard [facility] Surgical History No pertinent past surgical history Family History Other Mental health disorder Substance use disorder Social History (Updated 09/30/24 @ 09:27 by Marco A Prince PA-C) Housing: Apartment Alcohol intake: current Alcohol intake frequency: a few times a week Patient Tobacco Use Status: Never used Tobacco Tobacco use type: Cigarette e-Cigarette/Vaping Use: Never Used Second Hand Smoke Exposure: No service: No Current occupational status: employed 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 Tucker Dos Santos, Betty Hill, Zbigniew Barreto and colleagues, with an educational kimberly from [employer]. Review of Systems Const Denies body aches, Denies chills, Denies excessive sweating, Denies fatigue, Denies fever(s) and Denies headache(s) Eyes Denies blurry vision ENT Denies dysphagia, Denies vertigo, Denies dizziness, Denies headache(s), Denies hearing loss and Denies tinnitus Card Denies chest pain, Denies chest pain with activity, Denies syncope, Denies irregular heart rhythm and Denies dyspnea Resp Denies chest congestion, Denies cough, Denies hemoptysis, Denies dyspnea and Denies wheezing GI Denies abdominal pain, Denies melena, Denies hematochezia, Denies coffee ground emesis, Denies dysphagia, Denies diarrhea, Denies nausea and Denies vomiting Denies difficulty urinating, Denies dysuria, Denies urinary frequency, Denies urinary hesitancy and Denies urinary urgency Musc Denies arthralgias, Denies limited range of motion, Denies muscle cramps and Den ies muscle weakness Skin/Breast Denies rash and Denies skin ulcer Neuro Denies Abnormal speech present, Denies confusion, Denies vertigo, Denies dizzi ness, Denies syncope, Denies headache(s), Denies memory loss and Denies seizure- like activity Psych Denies anxiety, Denies confusion, Denies depression, Denies memory loss, Denies panic attacks and Denies paranoia Endo Denies excessive sweating, Denies fatigue, Denies flushing, Denies polydipsia and Denies polyuria Aller/Immun Denies wheezing Physical exam (Primary Care) Vital Signs: Last Vital Signs Temp 96.9 F 09/30/24 09:06 Pulse 76 09/30/24 09:06 BP 136/86 09/30/24 09:06 Pulse Ox 97 09/30/24 09:06 Oxygen Delivery Method Room Air 09/30/24 09:06 BMI result Body Mass Index 27.8 Tobacco/Smoking Status: Tobacco use Status Tobacco use date assessed 06/28/24 09/30/24 09:07 Patient Tobacco Use Status Never used Tobacco 09/30/24 09:07 Tobacco use type Cigarette 09/30/24 09:07 e-Cigarette/Vaping Use Never Used 09/30/24 09:07 Thrive Assessment: Date of Thrive Assessment Date Thrive assessed 06/28/24 09/30/24 09:07 Const General: cooperative, comfortable, no acute distress, alert and awake; No confusion Orientation/consciousness: oriented to person, oriented to place, patient oriented x3 and No confusion HENMT Head: Yes normocephalic Ears: external ears normal and TM's normal bilaterally Face and sinus: No sinus tenderness Mouth: Normal oral and palatal mucosa present and tongue normal Teeth and gingiva: dentition normal and gingiva normal Throat: Yes posterior oropharynx normal, Yes tonsils normal and Yes uvula midline Eyes Conjunctivae: conjunctivae normal Sclerae: sclerae normal Pupils: Equal, round and reactive pupils present EOM: EOMs intact bilaterally Direct Ophthalmoscopy: No no photophobia Neck Neck: Yes no lymphadenopathy, No tender and Yes no JVD Thyroid: Thyroid normal Carotids: no bruits Chest Chest palpation & inspection: no tenderness Resp Effort & Inspection: normal respiratory effort, no audible wheezes, not labored and no stridor Auscultation: no crackles, no rales, no rhonchi and no wheezes Cardio Jugular venous distension: no JVD Rate: regular rate, not bradycardic and not tachycardic Rhythm: regular rhythm Bruits: no carotid bruits Peripheral pulses: Peripheral pulses 2+ throughout GI Inspection: Yes normal to inspection, No abdominal wall ecchymosis and No visible herniation Palpation (GI): Soft to palpation, nontender, no guarding, not rigid and No hepatosplenomegaly present Auscultation: normoactive bowel sounds General: Yes no CVA tenderness Back/Spine/Pelvis Back: no CVA tenderness and No back tenderness Cervical Spine: cervical ROM normal Thoracic/Lumbar Spine: thoracic and lumbar spine normal to inspection, straight leg raise negative bilaterally, No thoraco-lumbar ROM limited and No lumbar spinal tenderness Skin Lesions: no lesions Rashes: no rashes Wounds: no wounds Neuro General: oriented to person, oriented to place, patient oriented x3, CN's II-XI intact bilaterally and No confusion Cranial nerves: Yes Equal, round and reactive pupils present and Yes Normal ac commodation reflex present Cognition (Neuro): normal cognition Speech: No Abnormal speech present Gait exam (Neuro): Normal gait present Motor exam (neuro): 5/5 motor strength present throughout Extrem Right upper extremity: full ROM; no cyanosis Left upper extremity: full ROM; no cyanosis Right lower extremity: no edema Left lower extremity: no edema Psych Appearance: grossly normal Mental Status: mental status grossly normal Affect: normal affect Attitude: cooperative Thought process: Normal thought process present Coding Level of Care Code Est Pt Prev Care 40-64y(26532) Diagnoses Annual physical exam Z00.00 Mild intermittent asthma without complication J45.20 Asthma severity: mild Asthma persistence: intermittent Asthma complication type: uncomplicated Primary hypertension I10 Hypertension type: primary hypertension Acquired hypothyroidism E03.9 Hypothyroidism type: acquired Colon cancer screening Z12.11 Varicose veins of left lower leg I83.92 Assessment & Plan Assessment & Plan (1) Annual physical exam: Code(s): Z00.00 - Encounter for general adult medical examination without abnormal findings Category: Medical Plan: As per HPI (2) Asthma: Code(s): J45.909 - Unspecified asthma, uncomplicated Category: Medical Qualifiers: Asthma severity: mild Asthma persistence: intermittent Asthma complication type: uncomplicated Qualified Code(s): J45.20 - Mild intermittent asthma, uncomplicated Plan: Patient is followed by [facility], most recent allergy testing showing multiple environmental allergies. (3) Hypertension: Code(s): I10 - Essential (primary) hypertension Category: Medical Qualifiers: Hypertension type: primary hypertension Qualified Code(s): I10 - Essential (primary) hypertension Plan: Patient's blood pressure acceptable today in office, will continue his current dose of lisinopril 10 mg with goal blood pressure to remain below 140/90 (4) Hypothyroidism: Code(s): E03.9 - Hypothyroidism, unspecified Category: Medical Qualifiers: Hypothyroidism type: acquired Qualified Code(s): E03.9 - Hypothyroidism, unspecified Plan: Patient continues on levothyroxine 50 mcg, TSH has been stable. (5) Colon cancer screening: Code(s): Z12.11 - Encounter for screening for malignant neoplasm of colon Category: Medical Plan: willing to cologaurd (6) Varicose veins of left lower leg: Code(s): I83.92 - Asymptomatic varicose veins of left lower extremity Category: Medical Plan: Has left pain related to his varicose vein in his left leg. He reports seeing a vascular surgeon in the past though was too expensive for him to do a procedure. He is interested in a compression sock to use when he is working. Orders: Orders Complete Blood Count no Diff Today I10 - Essential (primary) hypertension Microalbumin, Random (w Creat) Today I10 - Essential (primary) hypertension Comprehensive Urania. Panel Fast Today I10 - Essential (primary) hypertension TSH reflex Free T4 Today E03.9 - Hypothyroidism, unspecified Prostate Specific Antigen Scr Today E03.9 - Hypothyroidism, unspecified, Z12.5 - Encounter for screening for malignant neoplasm of prostate Referrals Cologuard Test Z12.11 - Encounter for screening for malignant neoplasm of colon Medications: New compr.stocking,knee,long,large Need for medical compression 10-15 mmHg 2 ea 0RF I83.92 - Asymptomatic varicose veins of left lower extremity Refilled levothyroxine (Euthyrox) take one tab on an empty stomach in the morning 50 mcg PO DAILY 90 tabs 2RF E03.9 - Hypothyroidism, unspecified lisinopril 10 mg PO DAILY 90 tabs 1RF I10 - Essential (primary) hypertension Patient Instructions: Goal: Blood pressure to remain below 140/90 Barriers: Adherence to physical activity and healthy eating habits
== END 2024-09-30 09:39 | disposition home or self-care (01) ==
PROVIDERS: PCP Physician Assistant; Visit Provider Physician Assistant
DX: Z00.00 Encounter for general adult medical examination without abnormal findings (principal); J45.20 Mild intermittent asthma, uncomplicated; I10 Essential (primary) hypertension; E03.9 Hypothyroidism, unspecified; Z12.11 Encounter for screening for malignant neoplasm of colon; I83.92 Asymptomatic varicose veins of left lower extremity

== ENCOUNTER → 2024-09-30 09:04 | Outpatient (BNVA) | payer OTHER, SELFPAY | PROVIDERS: PCP Internal Medicine; Visit Provider Physician Assistant ==

== ENCOUNTER 2025-04-01 09:16 | Outpatient (REF) | payer OTHER, SELFPAY ==
[2025-04-01 10:01] LABS: Hematocrit 43.5 % (42.0-52.0); Hemoglobin 14.5 g/dl (14.0-18.0); Mean Corpuscular HGB Conc 33.3 g/dl (31.0-36.0); Mean Corpuscular Hemoglobin 29.6 pg (27.0-33.0); Mean Corpuscular Volume 88.8 fL (80.0-98.0); NRBC Abs Auto 0.000 X10*3/uL (0.0-0.012); NRBC Pct Auto 0.0 /100WBC (0.0-0.2); Platelet Count 291 X10*3/uL (160-400); Red Blood Count 4.90 X10*6/uL (4.60-5.80); White Blood Count 4.5 X10*3/uL (4.8-10.8)
[2025-04-01 11:07] LABS: Alanine Aminotransferase 33 U/L (0-40); Albumin Level 4.5 g/dL (3.5-5.0); Alkaline Phosphatase 49 U/L (39-117); Anion Gap 10 (12-20); Aspartate Amino Transferase 24 U/L (5-37); Blood Urea Nitrogen 15 mg/dL (9-16); Calcium 9.2 mg/dL (8.4-10.2); Carbon Dioxide 27 mmol/L (22-29); Chloride 109 mmol/L (96-108); Estimated Glomerular Filt Rate > 60; Potassium 4.4 mmol/L (3.3-5.1); Sodium 142 mmol/L (135-145); Total Protein 7.0 g/dL (6.5-8.0)
[2025-04-01 11:22] LABS: Microalbum/Creatinine Ratio Ur 6.9 ug/mg cr (<30)
== END 2025-04-01 09:17 | disposition home or self-care (01) ==
LOC: HO.LAB 09:16
PROVIDERS: PCP Physician Assistant; Visit Provider Physician Assistant
DX: Z12.5 Encounter for screening for malignant neoplasm of prostate (principal); I10 Essential (primary) hypertension; E03.9 Hypothyroidism, unspecified
CPT/HCPCS: 36415; 80053; 82043; 82570; 84153; 84443; 85027

== ENCOUNTER 2025-04-05 08:55 | Outpatient (AMB) | payer OTHER, SELFPAY ==
--- OUTSIDE RECORDS SUMMARY | 2024-02-17 19:00 | XMS_ITS | Continuity of Care Document ---
Author Organization [facility] Address [address] [place] [address] Dr Gaitan [address]nie 1000 [place] [address] Phone Care Team Providers Care Animal Park Code Enforcement Officer Name Role Phone Nikolai ORTEGA, [place], Tucker ZEPEDA Unavailable U navailable Advance Directives Directive Yes / No Effective Date File Name No Information Encounters Encounter Description Practice Location Reason(s) For Visit Diagnoses Date Provider Encounter Disposition [facility], [address] [place] [address] Dr Gaitan 1000SuGely negro [place], [id number], [place] tel:[phone] [facility] [place] No Information 4 Nikolai ORTEGA, KATELYN COLEMAN. [address] [place] [address], [facility] [place], [id number], [place]. tel:[phone] [place] [facility], [address] [place] [address] Dr Gaitan 1000SuGely negro [place], [id number], [place] tel:[phone] [facility] [place] Cramp and spasmRestles s legs syndromeVeno us insufficienc y (chronic) (peripheral) Pruritus, unspecifiedE ssential (primary) hypertension 4 Xuan Sutton. [address] [place] [address], [facility] [place], [id number], [place]. tel:[phone] [facility] [facility], [address] [place] [address] Dr Gaitan 1000SuGely negro [place], [id number], [place] tel:[phone] [facility] [place] Varicose veins of bilateral lower extremities with other complication Federico in right lower legPain in left lower legPain in right legRestless legs syndromeEsse ntial (primary) hypertension Pruritus, unspecifiedP ain in left legCramp and spasm 4 Nikolai ORTEGA, [place], KATELYN Ceballos. [address] [facility], [facility] [address], [place], [place], [id number], [place]. tel:[phone] [facility], [address] [facility] [address], [place], [id number], [place] tel:[phone] [facility] Chronic venous hypertension (idiopathic) with other complication s of bilateral lower extremity 4 Nikolai ORTEGA RVT, KATELYN Ceballos. [address] [facility], [address], [place], [place], [id number], [place]. tel:[phone] Family History Family Member Type Diagnosis Age At Onset No Information Payers Payer name Insurance type Identifiers Authorization(s) Com ments No Information Social History Type Description Quantity Date Captured Comments Sex Male Smoking Status No Information Current Gender Male (finding) Chief Complaint And Reason For Visit No Information Plan Of Treatment Date Type Action Status Goal Diet education completed Referral Ordered: Weight management: Referral to physician timeframe: 3 Months (related to Body mass index (BMI) 27.0-27.9, adult) ordered History Of Present Illness Encounter Date Complaint History Of Prese nt Illness No Information Functional Status Date Description Comments No Information Instructions Date Instruction Additional Infor olga Patient education booklet given Related to Cramp and spasm Compression stocking usage as conservative measure Related to Cramp and spasm Pre and post instruc tions reviewed and provided Related to Varicose veins of bilateral lower extremities with other complications Patient education booklet given Related to Varicose veins of bilateral lower extremities with other complications Lifestyle education Related to B victoria mass index (BMI) 27.0-27.9, adult Giving Encouragement to exercise Related to Body mass index (BMI) 27.0-27.9, adult Diet education Related to Body mass index (BMI) 27.0-27.9, adult Assessments Type Assessment Date No Information
--- NOTE | 2025-04-05 09:00 | MHC.PC.OV ---
Vital Signs 04/05/25 09:02 Height 6 ft 2 in Weight 223 lb BMI 28.6 BP 122/76 Blood Pressure Location Lt brachial Position Sitting Pulse 80 Pulse Source Pulse Oximeter Temp 97.5 F Temp Source Temporal Artery Scan Pulse Oximetry (%) 97 Oxygen Delivery Method Room Air Intake Visit Reasons: f/u hTN/ Hypothyroid Intake Note: Patient is here to follow up on HTN, Hypothyroid. Extension Associate Required: Yes Extension Associate Language: Web Press Operator Helper Offset Name: Isabela (spouse) Information Interpreted: non-clinical & clinical (Pt decline consulting marine engineer service prefer spouse to translate for him) Gear Nicker: Present Accompanied by: Spouse Allergies No Known Allergies Allergy (Verified 04/05/25 09:10) Medication List - Last Reconciled 04/05/25 by Marco A Prince PA-C blood pressure monitor (Blood Pressure Kit) As directed compr.stocking,knee,long,large Need for medical compression 10-15 mmHg fluticasone propion-salmeterol 115-21 mcg/actuation (Advair HFA) 2 puffs inhalation Q12H levothyroxine (Euthyrox) 50 mcg PO DAILY lisinopril 10 mg PO DAILY tadalafil (Cialis) 20 mg PO DAILY PRN Tobacco use date assessed: 04/05/25 Dental Screening Dental Screen Date: 06/28/24 HPI f/u hTN/ Hypothyroid HPI Details Patient is a 49-year-old male here today for a follow-up visit Patient has a past medical history of asthma, hypothyroidism, hypertension. -Concern--> The patient has a history of persistent shortness of breath, particularly when going up stairs. A pulmonary function test performed last year revealed a moderate obstructive ventilatory defect. He has a history of occupational exposure to chemicals at a workplace where colleagues later developed lung cancer. Advair was previously prescribed for his breathing, but he did not fill it due to insurance coverage issues and has been using someone else's rescue inhaler. He previously saw a supply crib attendant and had an allergy panel, which showed an IgE level that was not significantly elevated, though he does have environmental allergies. The patient also reports recent onset of right foot pain, localized mostly to the heel. .. HTN: Patient's blood pressure acceptable with current dose of lisinopril. .. Asthma : Asthma has been well controlled with current maintenance inhaler, patient was followed by pulmonology and did allergy testing which did note environmental allergies. .. Hypothyroidism: Patient's most recent TSH stable, continues on 50 mcg of levothyroxine with good effect. 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 1. Little interest or pleasure in doing things: not at all 2. Feeling down, depressed, or hopeless: not at all 3. Trouble falling or staying asleep, or sleeping too much: not at all 4. Feeling tired or having little energy: not at all 5. Poor appetite or overeating: not at all 6. Feeling bad about yourself - or that you are a failure or have let yourself or your family down: not at all 7. Trouble concentrating on things, such as reading the newspaper or watching television: not at all 8. Moving or speaking so slowly that other people could have noticed. Or the opposite - being so fidgety or restless that you have been moving around a lot more than usual: not at all 9. Thoughts that you would be better off or of hurting yourself in some way: not at all Total score: 0 Depression Screening Interpretation: Negative Depression Screening Done: Yes 37665 - PHQ-9 Billing: Yes Source: Developed by Drs. Tucker Dos Santos, Zbigniew Joy and colleagues, with an educational kimberly from [employer]. Thrive Questionnaire Date Thrive assessed: 06/28/24 I am a: Patient What is your living situation today?: I have a steady place to live Within the past 12 months, did the food you bought not last and you didn't have the money to get more?: Never true Within the past 12 months, did you worry whether your food would run out before you got money to buy more?: Never true Do you have trouble paying for medicines?: No Do you have trouble getting transportation to medical appointments?: No Do you have trouble paying your heating and electricity bill?: No Do you have trouble taking care of your child, family member or friend?: No Do you have trouble with day-to-day activities such as bathing, preparing meals, shopping, managing finances, etc.?: No Are you currently unemployed and looking for a job?: No Are you interested in more education?: No Please select the resources that you would like help with: None Currently or been in a relationship where the following occur: No concerns reported THRIVE Score: 0 AUDIT C Alcohol Use Questionnaire (AUDIT-C) 1. How often do you have a drink containing alcohol?: 2-3 times a week 2. How many drinks containing alcohol do you have on a typical day when you are drinking?: 10 or more 3. How often do you have six or more drinks on one occasion?: Less than monthly Total Score: 8 TAWANDA-7 AMB Questionnaire TAWANDA-7 Date TAWANDA - 7 assessed: 06/28/24 Feeling nervous, anxious, or on edge: 0 = Not at all Not being able to stop or control worryin = Not at all Worrying too much about different things: 0 = Not at all Trouble relaxin = Not at all Being so restless that it is hard to sit still: 0 = Not at all Becoming easily annoyed or irritable: 0 = Not at all Feeling afraid as if something awful might happen: 0 = Not at all Total TAWANDA-7 score (0-4 normal; 5-9 mild; 10-14 moderate; 15-21 severe): 0 Source: Developed by Drs. Tucker Dos Santos, Zbigniew Joy and colleagues, with an educational kimberly from [employer]. TAWANDA-7 Assessment Billing TAWANDA-7 Assessment Tool: TAWANDA-7 Assessment 06509 Review of Systems Const Denies headache(s) Eyes Denies loss of vision ENT Denies vertigo, Denies dizziness, Denies headache(s) and Denies sore throat Card Denies chest pain, Denies leg edema and Denies lightheadedness Resp Denies cough, Denies hemoptysis and Denies wheezing GI Denies abdominal pain, Denies melena, Denies constipation, Denies diarrhea and Denies vomiting Denies dysuria, Denies urinary frequency and Denies urinary urgency Musc Denies arthralgias, Denies joint swelling, Denies numbness and Denies tingling Neuro Denies Abnormal speech present, Denies behavioral changes, Denies vertigo, Denies dizziness, Denies headache(s), Denies loss of vision, Denies memory loss, Denies numbness and Denies tingling Psych Denies anxiety, Denies behavioral changes, Denies depression, Denies memory loss and Denies panic attacks Will/Lymph Denies easy bleeding and Denies easy bruising Aller/Immun Denies wheezing Physical exam (Primary Care) Vital Signs: Last Vital Signs Temp 97.5 F 04/05/25 09:02 Pulse 80 04/05/25 09:02 BP 122/76 04/05/25 09:02 Pulse Ox 97 04/05/25 09:02 Oxygen Delivery Method Room Air 04/05/25 09:02 BMI result Body Mass Index 28.6 Tobacco/Smoking Status: Tobacco use Status Tobacco use date assessed 04/05/25 04/05/25 09:07 Patient Tobacco Use Status Never used Tobacco 04/05/25 09:07 Tobacco use type Cigarette 04/05/25 09:07 e-Cigarette/Vaping Use Never Used 04/05/25 09:07 PHQ-9: PHQ-9 Score PHQ-9: Total score 0 04/05/25 09:33 Depression Screening Interpretation: Negative Thrive Assessment: Date of Thrive Assessment Date Thrive assessed 06/28/24 04/05/25 09:07 Currently or been in a relationship where the following occur: No concerns reported Const General: healthy appearing, no acute distress, alert and awake Nutritional Appearance: well nourished Orientation/consciousness: oriented to person, oriented to place and oriented to time HENMT Ears: TM's normal bilaterally General nose exam: Normal nasal mucous membranes and turbinates present Eyes Conjunctivae: conjunctivae normal Sclerae: sclerae normal Pupils: Equal, round and reactive pupils present Neck Neck: Yes no lymphadenopathy and Yes no JVD Thyroid: Thyroid normal Carotids: no bruits Resp Effort & Inspection: normal respiratory effort and not tachypneic Auscultation: no crackles, no rales, no rhonchi and no wheezes Cardio Rate: regular rate Rhythm: regular rhythm Heart sounds: no murmurs and normal S1 and S2 GI Palpation (GI): Soft to palpation, nontender, no hepatomegaly and no splenomegaly Auscultation: normal bowel sounds Skin General skin exam: no rashes or lesions noted and dry skin Neuro General: oriented to person, oriented to place and oriented to time Cranial nerves: Yes Equal, round and reactive pupils present Speech: No Abnormal speech present Gait exam (Neuro): Normal gait present Motor exam (neuro): no tremor noted Extrem Right upper extremity: full ROM Left upper extremity: full ROM Right lower extremity: full ROM; no edema Left lower extremity: full ROM; no edema Psych Mental Status: mental status grossly normal Speech and movement: Normal speech and movement present Affect: normal affect Attitude: cooperative Thought process: Normal thought process present Office Procedures Flu Questionnaire Does the patient have a severe egg allergy?: No Does the patient have severe life threatening allergies?: No Does the patient have a fever or illness today?: No Has the patient ever had Guillain-[place] Syndrome?: No Has the patient ever had any past reaction to a flu shot?: No Immunizations Fluarix [id number] (PF) 45 mcg (15 mcg x 3)/0.5 mL IM syringe Performing Provider: Marco A Prince PA-C Performing Location: [facility] Administered by: KATHY Mirza on 04/05/25 09:32 Dose Route Admin Location Dispensed Lot Number Expiration Date [facility] [employer] 0.5 mL IM Left Deltoid 0.5 mL [id number] 10/11/25 [id number] [employer] VIS Given Date VIS Provided VIS Publication Date 04/05/25 Single Vaccine 24 Eligibility Eligibility Date Funding Source Not [facility] Eligible 04/05/25 Private Coding Level of Care Code Est Pt Level 4 (38664) Diagnoses Restrictive lung disease J98.4 Mild intermittent asthma without complication J45.20 Asthma complication type: uncomplicated Asthma persistence: intermittent Asthma severity: mild Primary hypertension I10 Hypertension type: primary hypertension Acquired hypothyroidism E03.9 Hypothyroidism type: acquired Pain of right heel M79.671 Additional Codes PHQ-9 - 04406 - PHQ-9 Billing: Yes ([id number]) TAWANDA-7 Assessment Billing - TAWANDA-7 Assessment Tool: TAWANDA-7 Assessment 65103 ([id number]) Assessment & Plan Assessment & Plan (1) Restrictive lung disease: Code(s): J98.4 - Other disorders of lung Category: Medical Plan: For the patient's ongoing dyspnea and history of a moderate obstructive defect on PFTs, a CT scan of the chest will be ordered to further evaluate his lung parenchyma, especially given his history of occupational chemical exposure. A new, more affordable daily maintenance inhaler will be prescribed to replace Advair, which was not covered by his insurance. A separate albuterol rescue inhaler will also be prescribed for acute symptoms. Follow-up with a supply crib attendant will be considered depending on the results of the CT scan. (2) Asthma: Code(s): J45.909 - Unspecified asthma, uncomplicated Category: Medical Qualifiers: Asthma complication type: uncomplicated Asthma persistence: intermittent Asthma severity: mild Qualified Code(s): J45.20 - Mild intermittent asthma, uncomplicated Plan: As above Patient is followed by [place] pulmonology, most recent allergy testing showing multiple environmental allergies. (3) Hypertension: Code(s): I10 - Essential (primary) hypertension Category: Medical Qualifiers: Hypertension type: primary hypertension Qualified Code(s): I10 - Essential (primary) hypertension Plan: Patient's blood pressure acceptable today in office, will continue his current dose of lisinopril 10 mg with goal blood pressure to remain below 140/90 (4) Hypothyroidism: Code(s): E03.9 - Hypothyroidism, unspecified Category: Medical Qualifiers: Hypothyroidism type: acquired Qualified Code(s): E03.9 - Hypothyroidism, unspecified Plan: Patient continues on levothyroxine 50 mcg, TSH has been stable. (5) Pain of right heel: Code(s): M79.671 - Pain in right foot Category: Medical Plan: Regarding the new onset of right heel pain, an X-ray of the right foot will be ordered to rule out a calcaneal spur or other bony abnormality. Conservative management was recommended, including the use of [id number] gel shoe inserts and rolling a frozen water bottle on the sole of the foot to reduce inflammation. If symptoms persist, a referral to podiatry for further evaluation and potential injections will be considered. Orders: Orders CT chest wo IV con Today J98.4 - Other disorders of lung Influenza [id number] Immunization Today Z23 - Encounter for immunization XR calcaneus RT min 2V Today M79.671 - Pain in right foot Medications: New budesonide-formoterol 160-4.5 mcg/actuation (Symbicort) 1 inh inhalation BID 10.2 grams 2RF 30 days J98.4 - Other disorders of lung albuterol sulfate 90 mcg/actuation (Ventolin HFA) 1 inh inhalation QID 8.5 grams 1RF 30 days J45.20 - Mild intermittent asthma, uncomplicated Discontinued fluticasone propion-salmeterol 115-21 mcg/actuation (Advair HFA) Discontinued Reason: Doctor's Order 2 puffs inhalation Q12H 12 grams 6RF
[2025-04-05 09:02] VITALS: BP 122/76; PULSE 80; TEMP 36.4; O2SAT 97; BMI 28.6
== END 2025-04-05 09:35 | disposition home or self-care (01) ==
PROVIDERS: PCP Physician Assistant; Visit Provider Physician Assistant
DX: J98.4 Other disorders of lung (principal); J45.20 Mild intermittent asthma, uncomplicated; I10 Essential (primary) hypertension; E03.9 Hypothyroidism, unspecified; M79.671 Pain in right foot; Z23 Encounter for immunization

== ENCOUNTER → 2025-04-05 08:55 | Outpatient (BNVA) | payer OTHER, SELFPAY | PROVIDERS: PCP Physician Assistant; Visit Provider Physician Assistant | DX: Z23 Encounter for immunization (principal); J98.4 Other disorders of lung; J45.20 Mild intermittent asthma, uncomplicated; I10 Essential (primary) hypertension; E03.9 Hypothyroidism, unspecified; M79.671 Pain in right foot | CPT/HCPCS: 90471; 90656; 96127 ==